=== PATIENT | male | born 1965 | race Caucasian/White ===

== ENCOUNTER → 2022-07-15 13:38 | Outpatient (BNVA) | payer MEDICAID, SELFPAY | PROVIDERS: PCP Nurse Practitioner Family; Visit Provider Nurse Practitioner Family | DX: J98.4 Other disorders of lung (principal); I10 Essential (primary) hypertension; K21.9 Gastro-esophageal reflux disease without esophagitis; J30.9 Allergic rhinitis, unspecified; L20.9 Atopic dermatitis, unspecified; Z12.5 Encounter for screening for malignant neoplasm of prostate; J40 Bronchitis, not specified as acute or chronic; K44.9 Diaphragmatic hernia without obstruction or gangrene; R10.9 Unspecified abdominal pain; K43.9 Ventral hernia without obstruction or gangrene; Z12.11 Encounter for screening for malignant neoplasm of colon; R11.0 Nausea; K59.00 Constipation, unspecified; M19.90 Unspecified osteoarthritis, unspecified site; M54.2 Cervicalgia; M25.511 Pain in right shoulder; M25.512 Pain in left shoulder; R79.89 Other specified abnormal findings of blood chemistry; R53.83 Other fatigue; R53.1 Weakness; Z86.19 Personal history of other infectious and parasitic diseases | CPT/HCPCS: 80053; 80061; 82607; 82746; 84402; 84403; 86705; 86706; 86709; 86803; 87340; G0103 ==

== ENCOUNTER → 2022-07-16 02:30 | Outpatient (BNVA) | payer MEDICAID, SELFPAY | PROVIDERS: PCP Nurse Practitioner Family; Visit Provider Nurse Practitioner Family | DX: J98.4 Other disorders of lung (principal); I10 Essential (primary) hypertension; K21.9 Gastro-esophageal reflux disease without esophagitis; J30.9 Allergic rhinitis, unspecified; L20.9 Atopic dermatitis, unspecified; Z12.5 Encounter for screening for malignant neoplasm of prostate; J40 Bronchitis, not specified as acute or chronic; K44.9 Diaphragmatic hernia without obstruction or gangrene; R10.9 Unspecified abdominal pain; K43.9 Ventral hernia without obstruction or gangrene; Z12.11 Encounter for screening for malignant neoplasm of colon; R11.0 Nausea; K59.00 Constipation, unspecified; M19.90 Unspecified osteoarthritis, unspecified site; M54.2 Cervicalgia; M25.511 Pain in right shoulder; M25.512 Pain in left shoulder; R53.83 Other fatigue; R53.1 Weakness; Z86.19 Personal history of other infectious and parasitic diseases | CPT/HCPCS: 87522 ==

== ENCOUNTER → 2022-08-13 07:58 | Outpatient (BNVA) | payer MEDICAID, SELFPAY | PROVIDERS: PCP Nurse Practitioner Family; Visit Provider Surgery | DX: K21.9 Gastro-esophageal reflux disease without esophagitis (principal); Z12.11 Encounter for screening for malignant neoplasm of colon; M62.08 Separation of muscle (nontraumatic), other site | CPT/HCPCS: 99203 ==

== ENCOUNTER 2022-08-14 10:02 | Day surgery (SDC) | payer MEDICAID, SELFPAY ==
[2022-08-13 09:45] VITALS: BMI 28.1
[2022-08-14 10:49] VITALS: BP 148/7; PULSE 62; RESP 17; TEMP 36.7; O2SAT 98
[2022-08-14] MEDS: sodium chloride 0.9% 1,000 ML 30 ML IV (11:09)
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
--- NOTE | 2022-08-14 13:36 | W.PM.OPSUD ---
Surgery/Procedure H&P Update DATE OF PROCEDURE: August 14, 2022 DATE H&P PERFORMED: 08/13/22 PLANNED PROCEDURE: Operation Date: 08/14/22 11:30 Proposed Procedures p 11933 EGD 06988 Colonoscopy M62.08,Z12.11,K21.9(Not Applicable) - DO cherri Alberts Colonoscopy(Not Applicable) - David Villa DO
[2022-08-14 14:18] VITALS: BP 135/72; PULSE 78; RESP 14; TEMP 36.1; O2SAT 95
[2022-08-14 14:26] VITALS: BP 129/77; PULSE 72; RESP 16; O2SAT 92
--- NOTE | 2022-08-14 14:58 | ANE.PACU2 ---
Inpatient post-anesthesia follow up: Airway intact: Yes Vital signs: Temperature 97.0 F Pulse Rate 72 Respiratory Rate 16 Blood Pressure 129/77 Pulse Oximetry 92 Oxygen Delivery Me thod Room Air Oxygen Flow Rate Fraction of Inspir ed Oxygen Hydration adequate: Yes Nausea and vomiting: No Pain level: 1 Mental status: Baseline
== END 2022-08-14 14:50 | disposition home or self-care (01) ==
PROVIDERS: PCP Nurse Practitioner Family; Visit Provider Surgery
PROC: 0DJ08ZZ Inspection of Upper Intestinal Tract, Via Natural or Artificial Opening Endoscopic (ICD-10-PCS; CPT 43235; principal; 2022-08-14 11:30)
PROC: 0DJD8ZZ Inspection of Lower Intestinal Tract, Via Natural or Artificial Opening Endoscopic (ICD-10-PCS; CPT 45378; 2022-08-14 11:30)
DX: Z12.11 Encounter for screening for malignant neoplasm of colon (principal); K21.9 Gastro-esophageal reflux disease without esophagitis; M62.08 Separation of muscle (nontraumatic), other site; K64.8 Other hemorrhoids; D12.8 Benign neoplasm of rectum; K29.70 Gastritis, unspecified, without bleeding; J44.9 Chronic obstructive pulmonary disease, unspecified; G47.30 Sleep apnea, unspecified; I25.10 Atherosclerotic heart disease of native coronary artery without angina pectoris; I10 Essential (primary) hypertension; Z86.19 Personal history of other infectious and parasitic diseases; Z87.891 Personal history of nicotine dependence
CPT/HCPCS: 43239; 45385; 88305; J2704; J7030

== ENCOUNTER 2022-09-17 07:47 | Outpatient (CLI) | payer MEDICAID, SELFPAY ==
--- NOTE | 2022-09-17 08:00 | US_ITS ---
WS: [email or web address] Gallbladder and right upper quadrant ultrasound, 09/17/2022 Clinical Data: nausea/vomit Comparison: None. Findings: The gallbladder shows no sludge or stone. The wall measures 0.2 cm with no pericholecystic fluid. The common bile duct is 0.4 cm and there are no intrahepatic ductal abnormalities. Liver shows no cysts, masses or dilated intrahepatic ducts. The pancreas is not obscured by overlying bowel gas and no cyst, pseudocyst, or evidence of pancreati tis is noted. Right kidney measures 11.0 cm and no cyst, masses or hydronephrosis can be seen. The aorta and inferior vena cava show no vascular abnormalities. US/US gall bladder [id number] Impression: Negative gallbladder and right upper quadrant ultrasound.
== END 2022-09-17 07:48 | disposition home or self-care (01) ==
LOC: RAD 07:48
PROVIDERS: PCP Nurse Practitioner Family; Visit Provider Surgery
DX: R11.2 Nausea with vomiting, unspecified (principal)
CPT/HCPCS: 76705

== ENCOUNTER 2022-10-04 09:28 | Outpatient (CLI) | payer MEDICAID, SELFPAY ==
--- NOTE | 2022-10-04 09:41 | XR_ITS ---
WS: [email or web address] XR lumbar spine 2-3V* [id number] REASON FOR EXAM: back pain FINDINGS: Minimal rotatory scoliosis convex left. Mild straightening of the normal lordosis on the lateral. No significant focal vertebral body abnormality. Mild narrowing of the L4-L5 and L5-S1 disc spaces with adjacent endplate sclerosis and osteophytosis. No spondylolysis. No significant listhesis. Moderate degenerative change in the facet joints L4-S1. XR/XR lumbar spine 2-3V* [id number] IMPRESSION: Degenerative spondylosis at the L4-L5 and L5-S1 levels as above.
--- NOTE | 2022-10-04 09:41 | XR_ITS ---
WS: [email or web address] XR cervical spine 3V* [id number] REASON FOR EXAM: neck pain FINDINGS: Mild straightening of the normal lordosis of the cervical spine. Mild scoliosis convex left. Normal odontoid. No significant vertebral body abnormality. Mild narrowing of the C3-C4 disc space with moderate anterior and uncinate osteophytes. The C4-C5 disc space is well preserved with moderate anterior and uncinate osteophytes. Mild narrowing of the C5-C6 disc space with moderate anterior bridging osteophyte and uncinate osteop hytes. Moderate narrowing of the C6-C7 disc space with small anterior bridging osteophyte and moderate uncin ate osteophytes. Moderate degenerative change in the facet joints C3-T1. 1 to 2 mm of anterolisthesis of C4 on C5. XR/XR cervical spine 3V* [id number] IMPRESSION: Multilevel degenerative spondylosis as above.
== END 2022-10-04 09:29 | disposition home or self-care (01) ==
PROVIDERS: PCP Nurse Practitioner Family; Visit Provider Nurse Practitioner Family
DX: M47.892 Other spondylosis, cervical region (principal); M47.896 Other spondylosis, lumbar region; M47.897 Other spondylosis, lumbosacral region
CPT/HCPCS: 72040; 72100

== ENCOUNTER 2022-10-23 18:32 | Emergency (ER) | payer MEDICAID, SELFPAY ==
[2022-10-23 18:35] VITALS: BP 166/70; PULSE 60; RESP 20; TEMP 36.4; O2SAT 98; BMI 28.3
[2022-10-23 19:17] LABS: Basophils # 0.1 10^3/uL (0.0-0.1); Eosinophils # 0.4 10^3/uL (0.0-0.8); Eosinophils % 3.2 %; Hematocrit 41.8 % (42.0-52.0); Hemoglobin 14.1 g/dL (11.7-16.6); Lymphocytes # 2.3 10^3/uL (0.8-4.8); Lymphocytes % 20.9 %; Mean Corpuscular HGB Conc 33.7 g/dL (30.0-36.0); Mean Corpuscular Hemoglobin 30.9 pg (28.0-34.0); Mean Corpuscular Volume 91.5 fl (80-94); Mean Platelet Volume 11.7 fL (7.4-10.4); Monocytes # 0.5 10^3/uL (0.2-0.9); Neutrophils # 7.55 10^3/uL (1.8-7.7); Neutrophils % 69.6 %; Nucleated Red Blood Cells % 0 %; Platelet Count 202 10^3/cmm (130-400); Red Blood Count 4.57 10^6/uL (4.1-5.3); Red Cell Distribution Width 12.8 % (12.1-15.1); White Blood Count 10.9 10^3/uL (4.0-10.0)
[2022-10-23 19:34] LABS: Alanine Aminotransferase 18 U/L (0-41); Albumin Level 4.3 g/dL (3.5-5.2); Alkaline Phosphatase 105 U/L (40-130); Anion Gap 12.1 (5-19); Aspartate Amino Transferase 23 U/L (0-40); Blood Urea Nitrogen 10 mg/dL (6-20); Calcium 8.7 mg/dL (8.5-10.5); Carbon Dioxide 28 mmol/L (22-29); Chloride 104 mmol/L (98-107); Globulin 2.3 g/dL (1.3-4.6); Glomerular Filtration Rate 98.9 mL/min (90-130); Glucose 108 mg/dL (65-115); Lipase 25 U/L (13-60); Osmolality Calculated 290 mOsm/kg (285-295); Potassium 4.1 mmol/L (3.5-5.1); Sodium 140 mmol/L (136-145); Total Bilirubin 0.3 mg/dL (0.15-1.2); Total Protein 6.6 g/dL (6.6-8.7)
[2022-10-23 19:41] LABS: Add Urine Microscopic? NO; Charge for UA Resulting for Rev
[2022-10-23 19:42] LABS: Urine Appearance Clear (CLEAR); Urine Color Yellow (Yellow); pH Urine 5 (5-7)
[2022-10-23 19:43] LABS: Bilirubin Urine Neg (Negative); Blood Urine Neg (Negative); Glucose Urine UA Norm (Normal); Ketones Urine Negative (Negative); Leukocyte Esterase Urine Negative (Negative); Nitrate Urine Negative (Negative); Protein Urine Neg (Negative); Urobilinogen Urine Neg (Negative)
--- NOTE | 2022-10-23 21:32 | ED_ITS ---
HPI - Abdominal Pain General: Chief Complaint: Abdominal Pain Stated Complaint: groin pain Time Seen by Provider: 10/23/22 21:32 History of Present Illness: 57-year-old male patient comes in today with right lower quadrant abdominal pain. Patient reports that if he coughs or take a deep breath the pain is worse. Patient does continue to have his gallbladder and appendix. Patient appears nontoxic. Patient appears in mild to moderate pain. Associated Symptoms: Reports nausea Review of Systems GI: Reports: abdominal pain and nausea PFSH ED PFSH: Medical History Hx of hiatal hernia Rectus diastasis Surgical History History of esophagogastroduodenoscopy (EGD) showed hiatal hernia 4-5 yrs ago Social History Smoking and tobacco status: former smoker Alcohol intake: former Physical Exam Const: COMMON NORMALS: alert HENMT: COMMON NORMALS: normocephalic HEAD & SCALP: normocephalic Eye: COMMON NORMALS: EOMs intact bilaterally Neck/C-Spine: COMMON NORMALS: full ROM Resp: COMMON NORMALS: normal respiratory effort AUSCULTATION: wheezes Cardio: COMMON NORMALS: regular rate and regular rhythm RATE: regular rate RHYTHM: regular rhythm GI: AUSCULTATION: Yes normoactive bowel sounds PALPATION: Yes Tenderness to palpation present (GI) Details: RLQ Extremity: COMMON NORMALS: normal to inspection Neuro: SENSORIUM/ORIENTATION: Yes alert Skin: COMMON NORMALS: turgor normal GENERAL SKIN EXAM: turgor normal Course Vital Signs: Vital signs: Vital Signs Temperature 97.6 F 10/23/22 18:35 Pulse Rate 66 10/23/22 22:09 Respiratory Rate 16 10/23/22 22:09 Blood Pressure 134/66 10/23/22 22:09 Pulse Oximetry 93 10/23/22 22:09 Oxygen Delivery Me thod 10/23/22 22:09 MDM - Abdominal Pain Medical Decision Making 57-year-old male patient comes in today for concerns of right lower quadrant abdominal pain. Patient is concerned they may be developing appendicitis. Patient does have recurrent abdominal pain has been seen several times in the ER and at the surgeon's office today regarding his abdominal pain. Patient reports that this pain is different, reports no fever, states chills, and complaints of nausea. Abdomen soft rotund and slightly distended. Bowel sounds are present. Skin is warm and dry. Vital signs are normal. Differential diagnosis includes but not limited to constipation, appendicitis, renal colic, muscle strain, malingering. CBC and CMP was unremarkable. Urinalysis was clean. CT of the abdomen pelvis noted some fluid levels in the bowel and stomach suggestive of gastroenteritis. Reviewed exam with patient with recommendations for follow-up or return to the ER. Patient reported understanding agreed to plan. Lab Data 10/23/22 18:46 10/23/22 18:46 Labs/Radiology: Radiology Impressions Abdomen/Pelvis CT 10/23/22 21:38 IMPRESSION: 1. Prominent fluid in the stomach and small bowel may reflect a gastroenteritis. 2. Small bilateral fat containing inguinal hernias without bowel or inflammation. 3. Left hip surgical hardware in place. 4. Minimal diverticulosis without diverticulitis. 5. Hepatic steatosis. 6. Constipation. 7. Nonspecific prominent subcentimeter inguinal lymph nodes bilaterally, nonspecific. 8. Left hepatic lobe subcentimeter cyst. Laboratory Results WBC 10.9 10^3/uL (4.0-10.0) H 10/23/22 18:46 RBC 4.57 10^6/uL (4.1-5.3) 10/23/22 18:46 Hgb 14.1 g/dL (11.7-16.6) 10/23/22 18:46 Hct 41.8 % (42.0-52.0) L 10/23/22 18:46 MCV 91.5 fl (80-94) 10/23/22 18:46 MCH 30.9 pg (28.0-34.0) 10/23/22 18:46 MCHC 33.7 g/dL (30.0-36.0) 10/23/22 18:46 RDW 12.8 % (12.1-15.1) 10/23/22 18:46 Plt Count 202 10^3/cmm (130-400) 10/23/22 18:46 MPV 11.7 fL (7.4-10.4) H 10/23/22 18:46 Neut % (Auto) 69.6 % 10/23/22 18:46 Lymph % (Auto) 20.9 % 10/23/22 18:46 [place] % (Auto) 5.0 % 10/23/22 18:46 Eos % (Auto) 3.2 % 10/23/22 18:46 Baso % (Auto) 1.0 % 10/23/22 18:46 Neut # (Auto) 7.55 10^3/uL (1.8-7.7) 10/23/22 18:46 Lymph # (Auto) 2.3 10^3/uL (0.8-4.8) 10/23/22 18:46 [place] # (Auto) 0.5 10^3/uL (0.2-0.9) 10/23/22 18:46 Eos # (Auto) 0.4 10^3/uL (0.0-0.8) 10/23/22 18:46 Baso # (Auto) 0.1 10^3/uL (0.0-0.1) 10/23/22 18:46 Nucleated RBC % (auto) 0 % 10/23/22 18:46 Nucleated RBCs # 0.0 /100WBC 10/23/22 18:46 Sodium 140 mmol/L (136-145) 10/23/22 18:46 Potassium 4.1 mmol/L (3.5-5.1) 10/23/22 18:46 Chloride 104 mmol/L (98-107) 10/23/22 18:46 Carbon Dioxide 28 mmol/L (22-29) 10/23/22 18:46 Anion Gap 12.1 (5-19) 10/23/22 18:46 BUN 10 mg/dL (6-20) 10/23/22 18:46 Creatinine 0.8 mg/dL (0.7-1.2) 10/23/22 18:46 GFR Calculation 98.9 mL/min (90-130) 10/23/22 18:46 Glucose 108 mg/dL (65-115) 10/23/22 18:46 Calculated Osmolality 290 mOsm/kg (285-295) 10/23/22 18:46 Calcium 8.7 mg/dL (8.5-10.5) 10/23/22 18:46 Total Bilirubin 0.3 mg/dL (0.15-1.2) 10/23/22 18:46 AST 23 U/L (0-40) 10/23/22 18:46 ALT 18 U/L (0-41) 10/23/22 18:46 Alkaline Phosphatase 105 U/L (40-130) 10/23/22 18:46 Total Protein 6.6 g/dL (6.6-8.7) 10/23/22 18:46 Albumin 4.3 g/dL (3.5-5.2) 10/23/22 18:46 Globulin 2.3 g/dL (1.3-4.6) 10/23/22 18:46 Lipase 25 U/L (13-60) 10/23/22 18:46 Urine Color Yellow (Yellow) 10/23/22 17:36 Urine Appearance Clear (CLEAR) 10/23/22 17:36 Urine pH 5 (5-7) 10/23/22 17:36 Ur Specific [place] 1.020 (1.005-1.030) 10/23/22 17:36 Urine Protein Neg (Negative) 10/23/22 17:36 Urine Glucose (UA) Norm (Normal) 10/23/22 17:36 Urine Ketones Negative (Negative) 10/23/22 17:36 Urine Blood Neg (Negative) 10/23/22 17:36 Urine Nitrate Negative (Negative) 10/23/22 17:36 Urine Bilirubin Neg (Negative) 10/23/22 17:36 Urine Urobilinogen Neg mg/dL (Negative) 10/23/22 17:36 Ur Leukocyte Esterase Negative (Negative) 10/23/22 17:36 Discharge Plan Discharge Patient Disposition: Home Clinical Impression: Gastroenteritis Abdominal pain Qualifiers: Abdominal location: right lower quadrant Qualified Code(s): R10.31 - Right lower quadrant pain Condition: Stable Prescriptions: New ondansetron 4 mg tablet,disintegrating 4 mg PO Q8H PRN (Reason: nausea and vomiting) Qty: 10 0RF hydrocodone-acetaminophen 5-325 mg tablet 1 tab PO Q8H PRN (Reason: pain (scale score 7-10)) Qty: 6 0RF No Action albuterol sulfate [Ventolin HFA] 90 mcg/actuation HFA aerosol inhaler 2 puff inhalation 6XD PRN (Reason: shortness of breath or wheezing) Qty: 8.5 3RF albuterol sulfate 2.5 mg /3 mL (0.083 %) solution for nebulization 2.5 mg inhalation Q4H PRN (Reason: shortness of breath or wheezing) Qty: 180 6RF triamcinolone acetonide 55 mcg aerosol,spray 2 spray intranasal DAILY Qty: 16.9 6RF Rx Instructions: administer into each nostril Minerin Creme Cream 1 applic topical DAILY PRN (Reason: dry skin) 30 Days Qty: 113 3RF alum-mag hydroxide-simeth [Maalox Maximum Strength] 400-400-40 mg/5 mL suspension 10 ml PO TID PRN (Reason: indigestion) Qty: 355 3RF budesonide-formoterol [Symbicort] 160-4.5 mcg/actuation HFA aerosol inhaler 2 puff inhalation Q12H Qty: 10.2 6RF baclofen 10 mg tablet 10 mg PO TID PRN (Reason: muscle spasm) 30 Days Qty: 90 3RF celecoxib 100 mg capsule 100 mg PO BID 30 Days Qty: 60 2RF cetirizine [Zyrtec] 10 mg tablet 10 mg PO DAILY 90 Days Qty: 90 1RF ondansetron HCl 4 mg tablet 4 mg PO Q6H PRN (Reason: nausea and vomiting) Qty: 90 1RF pantoprazole [Protonix] 40 mg tablet,delayed release (DR/EC) 40 mg PO BID 30 Days Qty: 60 3RF promethazine-DM 6.25-15 mg/5 mL syrup 5 - 10 ml PO Q6H PRN (Reason: cough) Qty: 200 1RF losartan 25 mg tablet 25 mg PO DAILY 30 Days Qty: 30 2RF Men's 50 Plus Multivitamin 400-20-370 mcg Tablet 1 tab PO DAILY Anusol-HC 2.5 % cream with perineal applicator 1 applic HI QID 10 Days Qty: 30 1RF Rx Instructions: May repeat for another 10 days if no resolution Discharge Orders: Discharge ED (Routine); Ordered 10/23/22 Ordered By: Matthew Monet Referrals: Mayi Multani NP [Primary Care Provider] - Discharge Diet: Usual diet Discharge Activity: Increase activity as tolerated Patient Instructions: Abdominal Pain (ED) Activity Restrictions/Additional Instructions: Drink plenty of fluids. Activity as tolerated. Follow-up with primary care in 1 week for recheck. Return to emergency department for worsening symptoms such as high fever greater than 100.4, persistent vomiting, bloody vomit or stool, or new concerns. Coding Level of Care Code ED Promotional Demonstrator for Luc Medrano
--- NOTE | 2022-10-23 21:38 | CTR_ITS ---
PROCEDURE INFORMATION: Exam: CT Abdomen And Pelvis With Contrast Exam date and time: 10/23/2022 9:58 PM Age: 57 years old Clinical indication: Abdominal pain; Localized; Right lower quadrant (rlq); Prior surgery; Surgery type: Left femur; Patient HX: C/O rlq pain TECHNIQUE: Imaging protocol: Computed tomography of the abdomen and pelvis with contrast. Radiation optimization: All CT scans at this facility use at least one of these dose optimization techniques: automated exposure control; mA and/or kV adjustment per patient size (includes targeted exams where dose is matched to clinical indication); or iterative reconstruction. Contrast material: OMNI 350; Contrast volume: 100 ml; Contrast route: INTRAVENOUS (IV); Other protocol: This patient has received 0 known CTs and 0 known cardiac nuclear medicine studies in the 12 months prior to the current study. COMPARISON: US gall bladder [id number] 09/17/2022 7:59 AM RADIATION DOSE METRICS: Total DLP (mGy-cm): 651.63 FINDINGS: Liver: Hepatic steatosis. Left hepatic lobe subcentimeter cyst. Gallbladder and bile ducts: Normal. No calcified stones. No ductal dilation. Pancreas: Normal. No ductal dilation. Spleen: Normal. No splenomegaly. Adrenal glands: Normal. No mass. Kidneys and ureters: Normal. No hydronephrosis. Stomach and bowel: Prominent fluid in the stomach and small bowel may reflect a gastroenteritis. Minimal diverticulosis without diverticulitis. Constipation. Appendix: No evidence of appendicitis. Intraperitoneal space: Unremarkable. No free air. No significant fluid collection. Vasculature: Unremarkable. No abdominal aortic aneurysm. Lymph nodes: Nonspecific prominent subcentimeter inguinal lymph nodes bilaterally, nonspecific. Urinary bladder: Unremarkable as visualized. Reproductive: Unremarkable as visualized. Bones/joints: Left hip surgical hardware in place. Soft tissues: Small bilateral fat containing inguinal hernias without bowel or inflammation. CT/CT abdomen pelvis w con* [id number] IMPRESSION: 1. Prominent fluid in the stomach and small bowel may reflect a gastroenteritis. 2. Small bilateral fat containing inguinal hernias without bowel or inflammation. 3. Left hip surgical hardware in place. 4. Minimal diverticulosis without diverticulitis. 5. Hepatic steatosis. 6. Constipation. 7. Nonspecific prominent subcentimeter inguinal lymph nodes bilaterally, nonspecific. 8. Left hepatic lobe subcentimeter cyst.
[2022-10-23] MEDS: ondansetron 2 mg/ML SDV 2 mL 4 MG IVP (21:47)
[2022-10-23] MEDS: morphine 4 mg/mL SDV 1 mL IVP (21:48)
[2022-10-23 22:09] VITALS: BP 134/66; PULSE 66; RESP 16; O2SAT 93
[2022-10-23] MEDS: iohexol 350 mg/mL 500 mL Btl (per mL) IV (22:09)
[2022-10-23] MEDS: sodium chloride 0.9% 250 ML IV (22:16)
[2022-10-23 22:57] VITALS: BP 135/71; PULSE 69; RESP 16; O2SAT 96
== END 2022-10-23 22:59 | disposition home or self-care (01) ==
PROVIDERS: Emergency Medicine; Emergency Provider Nurse Practitioner Family; PCP Nurse Practitioner Family
DX: K52.9 Noninfective gastroenteritis and colitis, unspecified (principal); Z87.891 Personal history of nicotine dependence
CPT/HCPCS: 36415; 74177; 80053; 81003; 83690; 85025; 96361; 96374; 96375; 99285; J2270; J2405; J7050; Q9967

== ENCOUNTER 2022-11-06 10:14 | Outpatient (CLI) | payer MEDICAID, SELFPAY ==
--- NOTE | 2022-11-06 10:00 | NM_ITS ---
WS: [email or web address] NUCLEAR MEDICINE HIDA SCAN CLINICAL INFORMATION: nausea TECHNIQUE: Following intravenous administration of 7.6 mCi of technetium 99m mebrofenin, images of th e abdomen were obtained over the course of 60 minutes. Next, gallbladder ejection fraction was determ ined by obtaining preprandial and one-hour postprandial images of the gallbladder following oral queta stion of Ensure. COMPARISON CT October 23, 2022 and ultrasound September 17, 2022 FINDINGS: Hepatomegaly. Normal hepatic uptake. Normal hepatic excretion. Gallbladder is visualized by 15 minute s. No evidence of acute cholecystitis. Normal common bile duct and small bowel activity. Gallbladder ejection fraction 83% within normal limits. No evidence of chronic cholecystitis. NM/NM hepatobiliary w phar* [id number] IMPRESSION: 1. No evidence of acute or chronic cholecystitis. 2. Gallbladder ejection fraction 83% within normal limits
== END 2022-11-06 10:15 | disposition home or self-care (01) ==
LOC: RAD 10:15
PROVIDERS: PCP Nurse Practitioner Family; Visit Provider Surgery
DX: K21.9 Gastro-esophageal reflux disease without esophagitis (principal); R11.0 Nausea
CPT/HCPCS: 78227; A9537

== ENCOUNTER → 2023-02-24 11:45 | Outpatient (BNVA) | payer MEDICAID, SELFPAY | PROVIDERS: PCP Nurse Practitioner Family; Visit Provider Nurse Practitioner Family | DX: I10 Essential (primary) hypertension (principal); F41.8 Other specified anxiety disorders; F43.29 Adjustment disorder with other symptoms; M54.2 Cervicalgia; M25.511 Pain in right shoulder; M25.512 Pain in left shoulder; M19.90 Unspecified osteoarthritis, unspecified site; J30.9 Allergic rhinitis, unspecified; K59.00 Constipation, unspecified; K21.9 Gastro-esophageal reflux disease without esophagitis; M54.50 Low back pain, unspecified | CPT/HCPCS: 80053; 80061; 84443; 85007; 85027 ==

== ENCOUNTER 2023-03-21 08:21 | Emergency (ER) | payer MEDICAID, SELFPAY ==
[2023-03-21 08:26] VITALS: BP 148/110; PULSE 60; RESP 17; TEMP 36.7; O2SAT 98; BMI 25.5
--- NOTE | 2023-03-21 08:30 | XR_ITS ---
WS: [email or web address] Right knee, 3 views, 03/21/2023 Clinical Data: trauma Comparison: None. Findings: No fractures or dislocations are seen. The joint spaces are normal. The patella is intact. The soft t issues are unremarkable. XR/XR knee RT 3V* [id number] Impression: Negative right knee.
--- NOTE | 2023-03-21 08:30 | XR_ITS ---
WS: [email or web address] Right shoulder, 2 views, 03/21/2023 Clinical Data: trauma Comparison: None. Findings: No fractures or dislocations are seen. The AC joint shows minimal osteoarthritis. The adjacent right clavicle, right scapula and ribs are normal. The soft tissues are unremarkable. There are monitor leads on the chest wall. XR/XR shoulder RT min 2V* [id number] Impression: 1. Negative right shoulder. 2. 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
--- NOTE | 2023-03-21 08:30 | XR_ITS ---
WS: [email or web address] Right forearm, AP and lateral views, 03/21/2023 Clinical Data: trauma Comparison: None. Findings: No fractures or dislocations are seen. The soft tissues are normal. The visualized right wrist and el bow show no obvious abnormalities. XR/XR forearm RT 2V [id number] Impression: Negative for right forearm fracture.
--- NOTE | 2023-03-21 08:30 | XR_ITS ---
WS: [email or web address] Portable AP upright chest, 03/21/2023 Clinical Data: dyspnea/cough Comparison: None. Findings: No nodules, masses or effusions are seen. The heart is normal. The pulmonary vascularity is not increased. No pneumonia or pneumothorax is seen. Monitor leads are on the chest wall. XR/XR chest 1V portable [id number] Impression: Negative chest.
--- NOTE | 2023-03-21 08:31 | CT_ITS ---
WS: [email or web address] CT cervical spine. Additional two-dimensional coronal and sagittal reconstruction was performed. 2022 Clinical Data: trauma Comparison: None. DLP: 1290.[address] scans at [facility] use at least one of these dose optimization techniques: automated e xposure control; mA and/or kV adjustment per patient size (includes targeted exams where dose is matc hed to clinical indication); or iterative reconstruction. Findings: No compression fractures are seen. The disc heights are normal. There is disc narrowing at C5-C6 and C6-C7. There is anterior and posterior osteophyte formation from C3 through C7. The spinous processes are in good alignment. The odontoid is unremarkable. There is no prevertebral soft tissue swelling. The soft tissues of the cervical spine and the lung apices are not remarkable. CT/CT cervical spin wo con* [id number] Impression: 1. Negative for cervical spine fracture. 2. Degenerative disc narrowing at C5-C6 and C6-C7. 3. Osteophytes anteriorly and posteriorly C3-C7.
--- NOTE | 2023-03-21 08:37 | XR_ITS ---
WS: [email or web address] Right elbow, 3 views, 03/21/2023 Clinical Data: trauma Comparison: None. Findings: No fractures or dislocations are seen. The radial head is normal. The soft tissues are unremarkable. There is a small olecranon spur. XR/XR elbow RT min 3V* [id number] Impression: Negative right elbow.
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
--- NOTE | 2023-03-21 08:42 | CT_ITS ---
WS: [id number] CT scan of the head, 03/21/2023 Clinical Data: trauma Comparison: None. DLP: 1290.[address] scans at [facility] use at least one of these dose optimization techniques: automated e xposure control; mA and/or kV adjustment per patient size (includes targeted exams where dose is matc hed to clinical indication); or iterative reconstruction. Findings: The ventricular system is normal without shift. No recent infarct or hemorrhage is seen. There are no abnormal intracerebral masses. The cerebellum and brainstem are not remarkable. Bony windows of the skull and skull base show no fractures or erosions. There is a small right pariet al scalp hematoma. The mastoid air cells, internal auditory canals, sella turcica, intraorbital sean nts, and paranasal sinuses are unremarkable. CT/CT head wo con* [id number] Impression: Negative CT scan of the head
--- NOTE | 2023-03-21 08:43 | XR_ITS ---
WS: [id number] Pelvis, AP view, 03/21/2023 Clinical Data: trauma Comparison: None. Findings: No new fractures or dislocations are seen. There is an intramedullary leticia in the proximal left femur fixed with an oblique intertrochanteric screw. There is osteoarthritic change of both hips with promi nent acetabular lips. The SI joints and pubic symphysis are intact. The soft tissues are not remarkab le. XR/XR pelvis 1-2V* [id number] Impression: Negative for new fracture.
[2023-03-21 09:05] LABS: Basophils # 0.1 10^3/uL (0.0-0.1); Basophils % 1.4 %; Eosinophils # 0.2 10^3/uL (0.0-0.8); Eosinophils % 2.8 %; Hemoglobin 14.4 g/dL (11.7-16.6); Lymphocytes # 1.9 10^3/uL (0.8-4.8); Lymphocytes % 22.4 %; Mean Corpuscular HGB Conc 34.3 g/dL (30.0-36.0); Mean Corpuscular Hemoglobin 30.6 pg (28.0-34.0); Mean Corpuscular Volume 89.2 fl (80-94); Mean Platelet Volume 10.9 fL (7.4-10.4); Monocytes # 0.5 10^3/uL (0.2-0.9); Monocytes % 6.1 %; Neutrophils # 5.75 10^3/uL (1.8-7.7); Neutrophils % 66.5 %; Nucleated Red Blood Cells % 0 %; Platelet Count 225 10^3/cmm (130-400); Red Blood Count 4.71 10^6/uL (4.1-5.3); Red Cell Distribution Width 13.3 % (12.1-15.1); White Blood Count 8.7 10^3/uL (4.0-10.0)
[2023-03-21 09:25] LABS: Alanine Aminotransferase 12 U/L (0-41); Albumin Level 3.8 g/dL (3.5-5.2); Alkaline Phosphatase 97 U/L (40-130); Anion Gap 13.7 (5-19); Aspartate Amino Transferase 19 U/L (0-40); Blood Urea Nitrogen 13 mg/dL (6-20); Calcium 8.4 mg/dL (8.5-10.5); Carbon Dioxide 24 mmol/L (22-29); Chloride 106 mmol/L (98-107); Globulin 2.4 g/dL (1.3-4.6); Glomerular Filtration Rate 137.9 mL/min (90-130); Glucose 118 mg/dL (65-115); Osmolality Calculated 289 mOsm/kg (285-295); Potassium 4.7 mmol/L (3.5-5.1); Sodium 139 mmol/L (136-145); Total Bilirubin 0.4 mg/dL (0.15-1.2); Total Protein 6.2 g/dL (6.6-8.7)
[2023-03-21] MEDS: tetanus-dipt-pertussis 0.5 mL SDV IM (09:31)
[2023-03-21] MEDS: ondansetron 2 mg/ML SDV 2 mL 4 MG IVP (09:33)
[2023-03-21 09:36] VITALS: RESP 20
[2023-03-21] MEDS: morphine 4 mg/mL SDV 1 mL IVP ×2 (09:36→11:11)
[2023-03-21 09:50] VITALS: BP 148/110
[2023-03-21 10:03] LABS: Add Urine Microscopic? NO; Charge for UA Resulting for Rev
[2023-03-21 10:10] LABS: Bilirubin Urine Neg (Negative); Blood Urine Neg (Negative); Glucose Urine UA Norm (Normal); Ketones Urine Negative (Negative); Leukocyte Esterase Urine Negative (Negative); Nitrate Urine Negative (Negative); Protein Urine Neg (Negative); Specific Gravity, Urine 1.015 (1.005-1.030); Urine Appearance Clear (CLEAR); Urine Color Yellow (Yellow); Urobilinogen Urine Norm (Negative); pH Urine 7 (5-7)
== END 2023-03-21 12:01 | disposition home or self-care (01) ==
PROVIDERS: Emergency Provider Family Medicine; PCP Nurse Practitioner Family
DX: S50.811A Abrasion of right forearm, initial encounter (principal); M25.511 Pain in right shoulder; V84.5XXA Driver of special agricultural vehicle injured in nontraffic accident, initial encounter; Z87.891 Personal history of nicotine dependence; Z23 Encounter for immunization
CPT/HCPCS: 70450; 71045; 72125; 72170; 73030; 73080; 73090; 73562; 80053; 81003; 85025; 90471; 90715; 96374; 96375; 96376; 99285; J2270; J2405

== ENCOUNTER 2023-05-15 06:40 | Outpatient (CLI) | payer MEDICAID, SELFPAY ==
--- NOTE | 2023-05-15 07:00 | USCV_ITS ---
Pilo Gonzalez Age: 57 Gender: M : 1965 Exam Date: 05/15/2023 07:12 Ordering Phys: Mayi Multani NP Technologist: AGNES Exam Location: [facility] [place] Indication: RLE PAIN HISTORY: Lower extremity pain. PROCEDURES: Venous duplex imaging was performed in only the right lower extremity. The following venous structures were evaluated: common femoral vein, profunda vein, proximal portion of the greater saphenous vein, superficial femoral vein, and the popliteal vein. In addition, the posterior tibial and peroneal trunk were evaluated. Serial compression, augmentation maneuvers, and spectral Doppler flow evaluation were performed. FINDINGS: No evidence of DVT seen in any vessel visualized at this time. CONCLUSIONS No DVT right lower extremity. Dr. Yuly Cartwright DO (Electronically Signed) Final Date: 15 May 2023 07:54 S
== END 2023-05-15 06:41 | disposition home or self-care (01) ==
LOC: RAD 06:42
PROVIDERS: PCP Nurse Practitioner Family; Visit Provider Nurse Practitioner Family
DX: M79.604 Pain in right leg (principal)
CPT/HCPCS: 93971

== ENCOUNTER → 2023-07-02 13:02 | Outpatient (BNVA) | payer MEDICAID, SELFPAY | PROVIDERS: PCP Nurse Practitioner Family; Visit Provider Nurse Practitioner Family | DX: G89.29 Other chronic pain (principal); M54.41 Lumbago with sciatica, right side; M54.42 Lumbago with sciatica, left side; I10 Essential (primary) hypertension; E78.6 Lipoprotein deficiency; M54.2 Cervicalgia; M25.511 Pain in right shoulder; M25.512 Pain in left shoulder; M19.90 Unspecified osteoarthritis, unspecified site; J30.9 Allergic rhinitis, unspecified; R20.2 Paresthesia of skin; K21.9 Gastro-esophageal reflux disease without esophagitis; F43.29 Adjustment disorder with other symptoms; G62.9 Polyneuropathy, unspecified | CPT/HCPCS: 80053; 80061; 85007 ==

== ENCOUNTER → 2023-10-15 16:56 | Outpatient (BNVA) | payer MEDICAID, SELFPAY | PROVIDERS: PCP Nurse Practitioner Family; Visit Provider Nurse Practitioner Family | DX: M54.2 Cervicalgia (principal); M54.9 Dorsalgia, unspecified; I10 Essential (primary) hypertension; E78.6 Lipoprotein deficiency; Z12.5 Encounter for screening for malignant neoplasm of prostate; M25.511 Pain in right shoulder; M25.512 Pain in left shoulder; M19.90 Unspecified osteoarthritis, unspecified site; K21.9 Gastro-esophageal reflux disease without esophagitis; R11.0 Nausea; K44.9 Diaphragmatic hernia without obstruction or gangrene; R10.31 Right lower quadrant pain; M54.6 Pain in thoracic spine; G89.29 Other chronic pain | CPT/HCPCS: 80053; 80061; G0103 ==

== ENCOUNTER → 2023-10-17 13:06 | Outpatient (BNVA) | payer MEDICAID, SELFPAY | PROVIDERS: PCP Nurse Practitioner Family; Visit Provider Nurse Practitioner Family | DX: M47.892 Other spondylosis, cervical region (principal); M54.6 Pain in thoracic spine; M54.2 Cervicalgia | CPT/HCPCS: 72040; 72072 ==

== ENCOUNTER → 2023-10-30 14:10 | Outpatient (BNVA) | payer MEDICAID, SELFPAY | PROVIDERS: PCP Nurse Practitioner Family; Referring Provider Nurse Practitioner Family; Visit Provider Orthopaedic Surgery | DX: M54.6 Pain in thoracic spine (principal); G89.29 Other chronic pain; M54.2 Cervicalgia | CPT/HCPCS: 72100 ==

== ENCOUNTER 2023-12-24 06:00 | Outpatient (RCR) | payer MEDICAID, SELFPAY | END 2024-01-13 23:59 | disposition home or self-care (01) | LOC: TPT 06:00 | PROVIDERS: Visit Provider Orthopaedic Surgery | DX: M54.9 Dorsalgia, unspecified (principal); G89.29 Other chronic pain | CPT/HCPCS: 97110; 97162 ==

== ENCOUNTER 2024-01-14 06:00 | Outpatient (RCR) | payer MEDICAID, SELFPAY | END 2024-02-13 23:59 | disposition home or self-care (01) | LOC: TPT 06:00 | PROVIDERS: Visit Provider Orthopaedic Surgery | DX: M54.9 Dorsalgia, unspecified (principal); G89.29 Other chronic pain | CPT/HCPCS: 97110 ==

== ENCOUNTER → 2024-01-16 10:43 | Outpatient (BNVA) | payer MEDICAID, SELFPAY | PROVIDERS: PCP Nurse Practitioner Family; Visit Provider Nurse Practitioner Family | DX: R10.9 Unspecified abdominal pain (principal) | CPT/HCPCS: 74018 ==

== ENCOUNTER 2024-09-19 13:01 | Emergency (ER) | payer MEDICAID, SELFPAY ==
[2024-09-19 13:06] VITALS: BP 177/84; PULSE 60; RESP 16; TEMP 36.9; O2SAT 100; BMI 27.1
--- NOTE | 2024-09-19 13:49 | XRR_ITS ---
PROCEDURE INFORMATION: Exam: XR Right Ankle Exam date and time: 09/19/2024 2:20 PM Age: 59 years old Clinical indication: Injury or trauma; Fall; Blunt trauma; Ankle; Right; Additional info: Pain swelling TECHNIQUE: Imaging protocol: Radiologic exam of the right ankle. Views: 3 or more views. COMPARISON: CR (LOW EXM, ) 09/19/2024 2:20 PM FINDINGS: Bones/joints: There is no evidence of acute fracture. No dislocation. Mild degenerative changes. Well corticated ossicular density along medial malleolus. Soft tissues: Normal. XR/XR ankle RT min 3V* [id number] IMPRESSION: No evidence of fracture or dislocation.
--- NOTE | 2024-09-19 13:49 | CTR_ITS ---
PROCEDURE INFORMATION: Exam: CT Lumbar Spine Without Contrast Exam date and time: 09/19/2024 2:17 PM Age: 59 years old Clinical indication: Injury or trauma; Fall; Blunt trauma (contusions or hematomas); Additional info: Back pain fall radiculopathy TECHNIQUE: Imaging protocol: Computed tomography of the lumbar spine without contrast. Radiation optimization: All CT scans at this facility use at least one of these dose optimization techniques: automated exposure control; mA and/or kV adjustment per patient size (includes targeted exams where dose is matched to clinical indication); or iterative reconstruction. COMPARISON: CR XR lumbar spine 2-3V* [id number] 10/30/2023 2:15 PM RADIATION DOSE METRICS: Total DLP (mGy-cm): 700.6 FINDINGS: Bones/joints: No acute fracture. There is stable sclerotic lesion in right medial ilium which could be bone island. No scoliosis. There is some disc height loss with vacuum disc at L4-L5 and L5-S1. There are lumbar disc bulges, thickening of ligamentum flavum, and facet degenerative changes. There is slight spinal canal narrowing L2-L3. There is likely mild spinal canal narrowing at L3-L4 and moderate L4-L5 where there is also likely significant narrowing of superior aspect of L5 subarticular recesses. There is bilateral neural foraminal narrowing at L4-L5 and L5-S1. Vasculature: Atherosclerotic change without evidence of aneurysm visualized vessels. Soft tissues: Unremarkable. CT/CT lumbar spine wo con* [id number] IMPRESSION: No acute fracture. Degenerative changes.
--- NOTE | 2024-09-19 13:49 | XRR_ITS ---
PROCEDURE INFORMATION: Exam: XR Pelvis Exam date and time: 09/19/2024 2:20 PM Age: 59 years old Clinical indication: Injury or trauma; Fall; Blunt trauma (contusions or hematomas); Bilateral; Pelvic region; Prior surgery; Surgery date: 6+ months; Surgery type: Lt hip; Additional info: Pain trauma TECHNIQUE: Imaging protocol: Radiologic exam of the pelvis. Views: 1 or 2 view. COMPARISON: CR XR pelvis 1-2V* [id number] 03/21/2023 9:03 AM FINDINGS: Bones/joints: There is no evidence of acute fracture. No dislocation. Internal fixation of left proximal femur. Osteoarthritis of both hips appear stable. Degenerative changes are noted in lower lumbar spine. Soft tissues: Unremarkable. XR/XR pelvis 1-2V* [id number] IMPRESSION: No evidence of fracture or dislocation.
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
--- NOTE | 2024-09-19 13:49 | XRR_ITS ---
PROCEDURE INFORMATION: Exam: XR Right Tibia and Fibula Exam date and time: 09/19/2024 2:20 PM Age: 59 years old Clinical indication: Injury or trauma; Fall; Blunt trauma; Lower leg; Right; Additional info: Ttp TECHNIQUE: Imaging protocol: Radiologic exam of the right tibia and fibula. Views: 2 views. COMPARISON: CR (LOW EXM, ) 09/19/2024 2:20 PM FINDINGS: Bones/joints: There is no evidence of acute fracture. No dislocation. Ankle findings described on ankle x-ray. Soft tissues: Normal. XR/XR tibia fibula RT 2V [id number] IMPRESSION: No evidence of fracture or dislocation.
--- NOTE | 2024-09-19 13:49 | CTR_ITS ---
PROCEDURE INFORMATION: Exam: CT Cervical Spine Without Contrast Exam date and time: 09/19/2024 2:14 PM Age: 59 years old Clinical indication: Injury or trauma; Fall; Blunt trauma TECHNIQUE: Imaging protocol: Computed tomography of the cervical spine without contrast. Radiation optimization: All CT scans at this facility use at least one of these dose optimization techniques: automated exposure control; mA and/or kV adjustment per patient size (includes targeted exams where dose is matched to clinical indication); or iterative reconstruction. 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 No spondylolisthesis. No compression deformity. No acute fracture. The cervical spine demonstrates moderate degenerative changes at multiple levels. No acute fracture. Lungs: Lung apices are normal. Soft tissues: Unremarkable. CT/CT cervical spin wo con* [id number] IMPRESSION: No acute posttraumatic changes in the cervical spine.
[2024-09-19] MEDS: ketorolac 30 mg/mL INJ IM (15:34)
[2024-09-19 15:40] VITALS: PULSE 59; RESP 16; O2SAT 98
--- NOTE | 2024-09-19 15:55 | W.ED.EXTPRO ---
HPI - Extremity Problem General: Chief complaint: Extremity Injury, Lower Stated complaint: pain in rt leg and lower back Time Seen by Provider: 09/19/24 13:13 History of Present Illness: Patient is a 59-year-old man that presents to the emergency department with complaints of right ankle, right tibia, right hip pain. Patient also notes neck pain and back pain. This all started last night when he had a slip and fall. He reports that he rotated this leg which caused him to fall. Patient does not recall hitting his head but he reports there was no loss of consciousness. He does have a small abrasion to his right moravian. Patient reports he was unable to bear weight. He had to be assisted back to the house. He woke up this morning with right ankle pain, swelling on the medial aspect. CMS intact, no open wounds. Pinpoint tenderness in his low back. Neck pain but no radiculopathy Related Data Home Medications Medication Instructions Recorded Confirmed clobetasol 0.05 % topical cream See Rx Instructions .Route .COMPLEX 09/19/24 09/19/24 epinephrine 0.3 mg/0.3 mL See Rx Instructions .Route .COMPLEX 09/19/24 09/19/24 injection, auto-injector ondansetron 4 mg disintegrating 4 mg PO BID PRN Nausea And Vomiting 09/19/24 09/19/24 tablet Previous Rx's Medication Instructions Recorded cetirizine 10 mg tablet (Zyrtec) 10 mg PO DAILY 90 days #90 tabs 07/02/23 cyclobenzaprine 10 mg tablet 10 mg PO TID PRN muscle spasm #90 12/10/23 tabs hydrocortisone 2.5 % topical cream 1 applic topical QID PRN skin 04/16/24 irritation #30 grams pantoprazole 40 mg tablet,delayed 40 mg PO DAILY 30 days #30 tabs 07/13/24 release (Protonix) losartan 25 mg tablet 25 mg PO DAILY 30 days #30 tabs 08/26/24 hydrocodone 5 mg-acetaminophen 325 1 tab PO Q4H PRN pain #20 tabs 09/19/24 mg tablet Allergies Allergy/AdvReac Type Severity Reaction Status Date / Time No Known Allergies Allergy Verified 09/19/24 13:11 Review of Systems General: Reports: 10 or more systems reviewed and unremarkable except in HPI and below [facility] PFSH: Medical History Rectus diastasis Hx of hiatal hernia Surgical History History of esophagogastroduodenoscopy (EGD) showed hiatal hernia 4-5 yrs ago Social History Smoking and tobacco/nicotine status: former use of tobacco/nicotine Alcohol intake: former Substance/Drug Use: current Physical Exam Const: COMMON NORMALS: no acute distress, patient oriented x3 and alert GENERAL APPEARANCE: cooperative ORIENTATION/CONSCIOUSNESS: Yes awake, Yes oriented to person, Yes oriented to place and Yes oriented to time HENMT: COMMON NORMALS: normocephalic and atraumatic HEAD & SCALP: normocephalic and atraumatic FACE & SINUS: normal facial exam MOUTH: Normal oral and palatal mucosa present THROAT: posterior oropharynx normal Eye: COMMON NORMALS: Equal, round and reactive pupils present, EOMs intact bilaterally, conjunctivae normal and no scleral icterus GENERAL EYE: appearance normal, both eyes and all related structures ALIGNMENT: Yes alignment normal PERIORBITAL: periorbital findings normal CONJUNCTIVA: Yes conjunctivae normal PUPIL: Yes Equal, round and reactive pupils present Neck/C-Spine: COMMON NORMALS: full ROM GENERAL: Yes normal visual inspection Lymph: LYMPHATIC: no lymphadenopathy noted Chest: COMMONS NORMALS: normal inspection of the chest Breast/axilla inspection: Yes no chest deformity, asymmetry, normal contours, no nodules, masses, tenderness Resp: COMMON NORMALS: normal respiratory effort, No retractions, No use of accessory muscles and clear to auscultation bilaterally EFFORT & INSPECTION: Yes able to speak in complete sentences and Yes symmetric chest movement AUSCULTATION: clear to auscultation bilaterally Cardio: COMMON NORMALS: regular rate, regular rhythm and Peripheral pulses 2+ throughout RATE: regular rate RHYTHM: regular rhythm PERIPHERAL PULSES: Peripheral pulses 2+ throughout GI: COMMON NORMALS: Normal to inspection, nondistended, normoactive bowel sounds present, Soft to palpation, non-tender and No hepatosplenomegaly present INSPECTION: Yes normal to inspection AUSCULTATION: Yes normoactive bowel sounds PALPATION: Yes Soft to palpation and Yes No hepatosplenomegaly present RECTAL EXAM: Yes deferred Back/Pelvis: OTHER: Cervical spine: Nontender to palpation Does have paraspinal muscle tenderness. Pulp Screen Operator, bicep, tricep, deltoid 5/5 strength. No Britton Sensation intact to light touch throughout nerve distributions of the upper extremities No thoracic pain or tenderness Lumbar spine: Pinpoint tenderness over low back right of midline. Difficult to tell if it is SI versus lower lumbar. 5/5 strength in hip flexor, quad, ant tib and toe extensor I attended to assess for clonus in left lower extremity since he has right ankle swelling and pain. Patient did not cooperate with exam. Questionable clonus during parts of the exam but then not present with other Sensation intact to light touch throughout the bilateral lower extremities. Extremity: COMMON NORMALS: normal to inspection GENERAL: Yes normal exam except as noted Neuro: COMMON NORMALS: patient oriented x3 SENSORIUM/ORIENTATION: Yes alert, Yes oriented to person, Yes oriented to place and Yes oriented to time CRANIAL NERVES: Yes CN normal except as noted Psych: COMMON NORMALS: mental status grossly normal, Normal thought process present, cooperative, activity/motor behavior normal, denies homicidal ideation and denies suicidal ideation THOUGHT PROCESS: Normal thought process present Skin: COMMON NORMALS: no rashes or lesions noted, no wounds and turgor normal GENERAL SKIN EXAM: no rashes or lesions noted and turgor normal Course Vital Signs: Vital signs: Vital Signs Temperature 98.5 F 09/19/24 13:06 Pulse Rate 61 09/19/24 16:59 Respiratory Rate 16 09/19/24 15:40 Blood Pressure 165/94 09/19/24 16:59 Pulse Oximetry 97 09/19/24 16:59 Oxygen Delivery Me thod Room Air 09/19/24 13:06 MDM - Extremity (Nontraumatic) Medical Decision Making Patient underwent diagnostic evaluation for head trauma, neck pain, pelvic pain, lumbar pain, tibial pain, ankle pain XR/CT imaging reveals the following: CT head no acute intracranial abnormalities CT cervical spine reveals no acute traumatic injuries. However there is evidence of pretty significant spondylosis at C5/C6 and C6/C7 with moderate to severe central stenosis. Would recommend an MRI of the cervical spine to evaluate further. CT of the lumbar spine reveals degenerative disc disease with disc bulges at multiple levels but no significant foraminal or central stenosis. XR pelvis reveals no acute findings. XR tibia reveals no acute findings. XR ankle reveals no acute findings. He does have significant swelling in the medial aspect of the right ankle. I am assuming patient has had some ligamentous strain or sprain. Patient reluctant to bear any weight on the extremity or work on range of motion. Going to place him in a removable boot and provided him with crutches for ambulation. He is also being given a shower chair to assist with safe showering. I have encouraged him to follow-up with Dr. Moscoso and his primary care doctor regarding his chronic and acute on chronic complaints. If his ankle or knee are not improved in 5 days, he needs to be reevaluated by his primary care doctor for possible reimaging. Patient verbalized understanding and all questions were answered Lab Data Radiology Impressions Ankle X-Ray 09/19/24 13:49 IMPRESSION: No evidence of fracture or dislocation. Cervical Spine CT 09/19/24 13:49 IMPRESSION: No acute posttraumatic changes in the cervical spine. Head CT 09/19/24 13:49 IMPRESSION: No acute intracranial posttraumatic changes. Lumbar Spine CT 09/19/24 13:49 IMPRESSION: No acute fracture. Degenerative changes. Pelvis X-Ray 09/19/24 13:49 IMPRESSION: No evidence of fracture or dislocation. Tibia/Fibula X-Ray 09/19/24 13:49 IMPRESSION: No evidence of fracture or dislocation. All radiology interpretation(s) finalized by discharge Discharge Plan Discharge Patient Disposition: Home Clinical Impression: Neck pain, Unsteady gait, Chronic pain, Ankle sprain and strain Chronic low back pain with bilateral sciatica Qualifiers: Back pain laterality: bilateral Qualified Code(s): M54.42 - Lumbago with sciatica, left side Condition: Stable Prescriptions: New hydrocodone-acetaminophen 5-325 mg tablet 1 tab PO Q4H PRN (Reason: pain) Qty: 20 0RF No Action cetirizine [Zyrtec] 10 mg tablet 10 mg PO DAILY 90 Days Qty: 90 1RF cyclobenzaprine 10 mg tablet 10 mg PO TID PRN (Reason: muscle spasm) Qty: 90 1RF hydrocortisone 2.5 % cream 1 applic topical QID PRN (Reason: skin irritation) Qty: 30 2RF pantoprazole [Protonix] 40 mg tablet,delayed release (DR/EC) 40 mg PO DAILY 30 Days Qty: 30 0RF losartan 25 mg tablet 25 mg PO DAILY 30 Days Qty: 30 0RF clobetasol 0.05 % cream See Rx Instructions .ROUTE .COMPLEX Rx Instructions: APPLY TWICE DAILY TO RASH. NOT FOR USE ON FACE, GROIN OR SKIN FOLDS. STOP APPLICATIONS WHEN CLEAR. epinephrine 0.3 mg/0.3 mL auto-injector See Rx Instructions .ROUTE .COMPLEX Rx Instructions: INJECT CONTENTS OF 1 PEN NEEDED FOR ALLERGIC REACTION DIRECTED. ondansetron 4 mg tablet,disintegrating 4 mg PO BID PRN (Reason: Nausea And Vomiting) Discharge Orders: Discharge ED (Routine); Ordered 09/19/24 Ordered By: Kandace Harris Other Ambulatory Orders: DME: Miscellaneous (Order) Location: None Selected Ordered By: Kandace Harris DME: Shower Chair (Order) Location: None Selected Ordered By: Kandace Harris Referrals: Kevin Moscoso DO [Physician] - Victoria Wade FNP [Primary Care Provider] - Discharge Diet: Advance as tolerated Discharge Activity: Resume usual activity and Increase activity as tolerated Patient Instructions: Ankle Sprain (ED), Cervical Spinal Stenosis (ED), Chronic Back Pain (DC), Fall Prevention (ED), Lower Back Exercises (ED), Opioid Safety, Pain Management Activity Restrictions/Additional Instructions: Please use your crutches until you are able to bear full weight on the right leg. You can use the removable boot but I want you coming out of the boot every day to work on ankle range of motion. If you are not better in 5 days then you need to follow-up with your primary care doctor for reimaging. I provided you with Dr. Kevin Moscoso's name and contact. He is a physician in the area that works on issues both in the neck and low back. Please call your primary care office or his office to set up an appointment. Coding Level of Care Code ED Bread Wrapper Operator for Luc Medrano
[2024-09-19] MEDS: oxyCODONE-APAP 5-325 mg Tablet 1 TAB PO (16:27)
[2024-09-19 16:59] VITALS: BP 165/94; PULSE 61; O2SAT 97
== END 2024-09-19 17:01 | disposition home or self-care (01) ==
PROVIDERS: Emergency Provider Nurse Practitioner; PCP Nurse Practitioner Family
DX: M54.2 Cervicalgia (principal); R26.81 Unsteadiness on feet; G89.29 Other chronic pain; S93.401A Sprain of unspecified ligament of right ankle, initial encounter; M54.42 Lumbago with sciatica, left side; Z87.891 Personal history of nicotine dependence; W01.0XXA Fall on same level from slipping, tripping and stumbling without subsequent striking against object, initial encounter
CPT/HCPCS: 70450; 72125; 72131; 72170; 73590; 73610; 96372; 99284; E0114; J1885

== ENCOUNTER → 2024-10-04 15:09 | Outpatient (BNVA) | payer MEDICAID, SELFPAY | PROVIDERS: PCP Nurse Practitioner Family; Visit Provider Nurse Practitioner Family | DX: G62.9 Polyneuropathy, unspecified (principal); I10 Essential (primary) hypertension | CPT/HCPCS: 80053; 80061; 82306; 82607; 83735; 84443; 84550; 85025; 85651; 86038; 86140; 86200; 86431; G0103 ==

== ENCOUNTER → 2024-10-05 15:31 | Outpatient (BNVA) | payer MEDICAID, SELFPAY | PROVIDERS: PCP Nurse Practitioner Family; Visit Provider Orthopaedic Surgery | DX: M54.6 Pain in thoracic spine (principal); G89.29 Other chronic pain; M54.42 Lumbago with sciatica, left side; M54.41 Lumbago with sciatica, right side; M54.2 Cervicalgia; M47.12 Other spondylosis with myelopathy, cervical region | CPT/HCPCS: 72050; 72110 ==

== ENCOUNTER 2024-10-08 14:38 | Outpatient (CLI) | payer MEDICAID, SELFPAY ==
--- NOTE | 2024-10-08 14:30 | USCV_ITS ---
Pilo Gonzalez Age: 59 Gender: M : 1965 Exam Date: 10/08/2024 14:43 Ordering Phys: Victoria Wade TOE POUNDER TOE POUNDER Technologist: R Exam Location: [facility] [place] Indication: right leg pain HISTORY: Right lower extremity pain PROCEDURES: Venous duplex imaging was performed in only the right lower extremity. The following venous structures were evaluated: common femoral vein, profunda vein, proximal portion of the greater saphenous vein, superficial femoral vein, and the popliteal vein. In addition, the posterior tibial and peroneal trunk were evaluated. FINDINGS: Normal 2-D Doppler and augmentation and compressibility throughout the lower extremity venous structures. Additional imaging through the proximal calf veins also reveals no thrombus. Limited evaluation of the greater saphenous vein is patent with no thrombus. CONCLUSIONS No DVT right lower extremity. Dr. Yuly Cartwright DO (Electronically Signed) Final Date: 08 October 2024 15:13 S
--- NOTE | 2024-10-08 16:00 | MR_ITS ---
WS: [id number] MRI CERVICAL SPINE NONCONTRAST TECHNIQUE: Sagittal T1, T2 and STIR imaging. Axial T2, gradient, and fiesta imaging. CLINICAL INFORMATION: cervical pain radiating to arms. COMPARISON: None. FINDINGS: Straightening of the normal cervical doses. Moderate spondylitic changes cervical spine. 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 Severe central canal stenosis C4-C5 C5-C6 C6-C7 with indentation and flattening of the cervical cord. Associated my elomalacia in the cervical cord at C4-C6. C2-C3: Shallow central protrusion. Slight indentation on the cervical cord. Mild LEFT and no signific ant RIGHT foraminal narrowing. Mild facet arthropathy. C3-C4: Central disc osteophyte protrusion with indentation on the cervical cord. Mild central canal s tenosis. Severe LEFT and mild RIGHT bony foraminal narrowing. Mild facet arthropathy. C4-C5: Ossification of the posterior longitudinal ligament. Severe central canal stenosis with indent ation and flattening of the cervical cord. Moderate to severe LEFT greater than RIGHT bony foraminal narrowing. Moderate facet arthropathy. C5-C6: Ossification of the posterior longitudinal ligament with severe central canal stenosis. Indent ation and flattening of the cervical cord. Severe bilateral bony foraminal narrowing RIGHT greater th an LEFT. Moderate facet arthropathy. Uncovertebral joint hypertrophy. C6-C7: Ossification of the posterior longitudinal ligament with a central disc osteophyte protrusion. Indentation and flattening of the cervical cord. Severe LEFT greater than RIGHT bony foraminal narro wing. Moderate facet arthropathy. C7-T1: Tiny central protrusion. Moderate to severe LEFT no significant RIGHT bony foraminal narrowing . Spinal canal is patent. Visualized brain stem structures: Normal. Prevertebral soft tissues: Normal. MR/MR cervical spin wo con* [id number] IMPRESSION: 1. Ossification of the posterior longitudinal ligament C4-C6 as seen on the re cent CT. 2. Severe central canal stenosis C4-C5 C5-C6 and C6-C7 with indentation and fl attening of the cervical cord. Associated myelomalacia in the cervical cord at these levels. 3. Mild central canal stenosis with a small central protrusion C3-4. 4. Multilevel moderate to severe bony foraminal narrowing worse at bilateral C 4-5, bilateral C5-C6 worse on the RIGHT, bilateral C6-7, and LEFT C7-T1.
== END 2024-10-08 14:39 | disposition home or self-care (01) ==
LOC: RAD 14:39
PROVIDERS: PCP Nurse Practitioner Family; Visit Provider Nurse Practitioner Family
DX: M47.22 Other spondylosis with radiculopathy, cervical region (principal); M79.604 Pain in right leg; M54.42 Lumbago with sciatica, left side; M54.41 Lumbago with sciatica, right side; G89.29 Other chronic pain; R29.6 Repeated falls; R93.89 Abnormal findings on diagnostic imaging of other specified body structures; M48.02 Spinal stenosis, cervical region; G95.89 Other specified diseases of spinal cord; M50.21 Other cervical disc displacement, high cervical region; M48.03 Spinal stenosis, cervicothoracic region; M46.82 Other specified inflammatory spondylopathies, cervical region; M47.892 Other spondylosis, cervical region
CPT/HCPCS: 72141; 93971

== ENCOUNTER 2024-10-14 10:29 | Outpatient (CLI) | payer MEDICAID, SELFPAY ==
--- NOTE | 2024-10-14 10:30 | US_ITS ---
WS: [id number] RIGHT UPPER QUADRANT ULTRASOUND HISTORY: R10.11 - Right upper quadrant pain COMPARISON: 09/17/2022 Liver: 17.3 cm in length. Top normal size liver with coarse echotexture. Loss of the normal portal tr iads. No mass or intrahepatic bile duct dilatation. Portal Vein: Normal hepatopetal flow with monophasic waveform. Gallbladder: No cholelithiasis. Small amount of sludge in the gallbladder. CBD: 0.4 cm Pancreas: Normal size and echogenicity. Right kidney: 10.7 cm in length. Normal size and echogenicity. No hydronephrosis or mass. Aorta and IVC: Unremarkable abdominal aorta and IVC. No ascites. US/US gall bladder [id number] IMPRESSION: 1. Top normal size liver with mild hepatic steatosis. 2. No cholelithiasis. There is a tiny amount of sludge in the gallbladder whic h may be due to prolonged fasting state. 3. No intrahepatic biliary duct dilatation.
== END 2024-10-14 10:30 | disposition home or self-care (01) ==
PROVIDERS: PCP Nurse Practitioner Family; Visit Provider Nurse Practitioner Family
DX: R10.11 Right upper quadrant pain (principal); K76.0 Fatty (change of) liver, not elsewhere classified; R93.2 Abnormal findings on diagnostic imaging of liver and biliary tract
CPT/HCPCS: 76705

== ENCOUNTER → 2024-10-19 12:30 | Outpatient (BNVA) | payer MEDICAID, SELFPAY | PROVIDERS: PCP Nurse Practitioner Family; Visit Provider Orthopaedic Surgery | DX: M47.12 Other spondylosis with myelopathy, cervical region (principal); Z09 Encounter for follow-up examination after completed treatment for conditions other than malignant neoplasm; M47.22 Other spondylosis with radiculopathy, cervical region | CPT/HCPCS: 36415; 80053; 81001; 85025 ==

== ENCOUNTER 2024-11-01 09:28 | Outpatient (CLI) | payer MEDICAID, SELFPAY ==
--- NOTE | 2024-11-01 10:00 | NM_ITS ---
WS: [id number] NUCLEAR MEDICINE HIDA SCAN CLINICAL INFORMATION: K82.8 - Other specified diseases of gallbladder TECHNIQUE: Following intravenous administration of 8.1 mCi of technetium 99m mebrofenin, images of the abdomen were obtained over the course of 60 minutes. Next, gallbladder ejection fraction was determined by obtaining preprandial and one-hour postprandial images of the gallbladder following oral ingestion of Ensure. FINDINGS: Normal hepatic uptake at 5 minutes. Normal hepatic excretion. Hepatomegaly. Normal common bile duct and small bowel activity. Gallbladder is visualized by 15 minutes. No evidence of acute cholecystitis. Gallbladder is somewhat contracted. Gallbladder ejection fraction 86% within normal limits. No evidence of chronic cholecystitis. NM/NM hepatobiliary w phar* [id number] IMPRESSION: 1. No evidence of acute or chronic cholecystitis. 2. Gallbladder ejection fraction 86% within normal limits.
== END 2024-11-01 09:29 | disposition home or self-care (01) ==
LOC: RAD 09:29
PROVIDERS: PCP Nurse Practitioner Family; Visit Provider Nurse Practitioner Family
DX: K82.8 Other specified diseases of gallbladder (principal); R16.0 Hepatomegaly, not elsewhere classified; R93.3 Abnormal findings on diagnostic imaging of other parts of digestive tract
CPT/HCPCS: 78227; A9537

== ENCOUNTER 2024-11-08 15:18 | Inpatient (IN) | payer MEDICAID, SELFPAY ==
[2024-11-08] VITALS (22 sets, daily range): BP systolic 141–208; BP diastolic 69–117; PULSE 64–78; RESP 14–25; TEMP 36.1–36.8; O2SAT 93–100; BMI 26.9
--- NOTE | 2024-11-08 11:46 | W.PM.OPSUD ---
Surgery/Procedure H&P Update DATE OF PROCEDURE: November 08, 2024 DATE H&P PERFORMED: 11/02/24 H&P UPDATE INFORMATION: I have reviewed H&P completed within last 30 days, I have examined patient prior to procedure and No changes to prior documentation PREOP DIAGNOSIS: Cervical stenosis with myelopathy PLANNED PROCEDURE: Operation Date: 11/08/24 13:20 Proposed Procedures p Cervical Posterior Fusion(Not Applicable) - Kevin Moscoso DO s Cervical Decompression(Not Applicable) - Kevin Moscoso DO
--- NOTE | 2024-11-08 12:00 | P.ANESASSM_ITS ---
Pre-Anesthetic Assessment Height/Weight: Height 1.7 m Weight 78.018 kg O2 Del Method Room Air 11/08/24 11:39 Preop Diagnosis: Cervical stenosis with myelopathy Operation Date: 11/08/24 13:20 Proposed Procedures p Cervical Posterior Fusion(Not Applicable) - Kevin Moscoso DO s Cervical Decompression(Not Applicable) - Kevin Moscoso DO Familial anesthetic complications: Woke up during an extremity surgery, he was able to look around and see the OR during the event Was Beta Romeo taken within 24 hours: N/A Was Clonidine taken within 24 hours: N/A Last intake: Intake Last Liquid Date 11/07/24 Last Liquid Time 20:00 Last Solid Date 11/07/24 Last Solid Time 20:00 Social Alcohol (wine) and No tobacco Exam alert, oriented x 3, clear to auscultation bilaterally and regular rate & rhythm Airway Mallampati: Class III Dentition: other (no upper teeth) Pulmonary Chronic Obstructive Pulmonary Disease and Sleep Apnea CV/HEM Arrythmia (palpitations occasionally ) and Hypertension Able to achieve > 4 METS without cardiac symptoms Hepatic Hepatitis (hep C s/p treatment) GI Gastroesophageal Reflux Disease Neuropsych Hx TBI Anesthetic Plan ASA status: 3 Anesthesia: General Risk of > 500 ml blood loss (7ml/kg in children): No Other Pertinent Information alpha gal allergy Medications/Allergies Home Medications ?Medication ?Instructions ?Recorded ?Confirmed ?Last Taken ?Type cetirizine 10 mg tablet (Zyrtec) 10 mg PO DAILY 90 day s #90 tabs 07/02/23 11/08/24 11/04/24 Rx cyclobenzaprine 10 mg tablet 10 mg PO TID PRN muscle s pasm #90 12/10/23 11/08/24 11/04/24 Rx tabs clobetasol 0.05 % topical cream 1 applic topical BID 0 09/19/24 11/08/24 11/05/24 History epinephrine 0.3 mg/0.3 mL See Rx Instructions .Route . COMPLEX 09/19/24 11/08/24 Unknown History injection, auto-injector losartan 25 mg tablet 25 mg PO DAILY 90 days #90 t abs 10/04/24 11/08/24 11/08/24 04:00 Rx jose (Zingiber officinalis) 500 500 mg PO DAILY 09/1611/08/24 Unknown History mg capsule omeprazole 40 mg capsule,delayed 40 mg PO BID 10/19/24 11/08/24 Unknown History release hydrocodone 5 mg-acetaminophen 325 1 tab PO Q6H PRN pa in 14 days #56 11/04/24 11/08/24 11/05/24 Rx mg tablet tabs hydrocortisone 2.5 % topical cream 1 applic topical QI D PRN skin 11/04/24 11/08/24 Unknown Rx irritation #30 grams ondansetron 4 mg disintegrating 4 mg PO BID PRN Nausea And 11/05/24 11/08/24 11/08/24 Rx tablet Vomiting #30 tabs Allergies Allergy/AdvReac Type Severity Reaction Status Date / Time heparin Allergy Intermediate Unknown Verified 11/08/24 11:20 alpha gal Allergy Intermediate ADR-Nausea Uncoded 11/08/24 11:19 PFSH Anesthesia Medical History Rectus diastasis Hx of hiatal hernia Surgical History History of esophagogastroduodenoscopy (EGD) showed hiatal hernia 4-5 yrs ago Social History Smoking and tobacco/nicotine status: never used tobacco/nicotine Alcohol intake: former Substance/Drug Use: current Data Anesthesia Cardiac Studies: No Data to Display
[2024-11-08] MEDS: sodium chloride 0.9% 1,000 ML 30 ML IV (12:03)
[2024-11-08] MEDS: scopolamine 1 mg PATCH 1 PATCH TRANSDERMA (12:23)
[2024-11-08] MEDS: ceFAZolin 2,000 mg SDV 2000 MG IVP ×2 (12:38→22:09)
[2024-11-08] MEDS: VANCOMYCIN ADD-Vantage 1,000 MG VIAL 1000 MG XX (13:27)
[2024-11-08] MEDS: lidocaine-epi 1% 20 mL INJ 10 ML INJECTION (13:27)
--- NOTE | 2024-11-08 15:13 | XR_ITS ---
WS: [id number] Cervical spine, C ARM fluoroscopy views, 11/08/2024 10/05/2024 Clinical Data: OR P[facility] Comparison: Cervical spine, 10/05/2024 Findings: Dr. Moscoso performed a posterior cervical thoracic fusion. XR/XR cervical spine 3V* [id number] Impression: Posterior cervical thoracic fusion.
--- NOTE | 2024-11-08 15:32 | P.OP_ITS ---
Operative Report Date of procedure: November 08, 2024 Pre-op diagnosis: Cervical stenosis with myelopathy Post-op diagnosis: same Procedure done: 1. C2-T2 posterior cervical fusion 2. C2-T2 instrumentation 3. C3/4 laminectomy with partial facetectomies 4. C4/5 laminectomy with partial facetectomies 5. C5/6 laminectomy with partial facetectomies 6. C6/7 laminectomy with partial facetectomies 7. C7/T1 laminectomy with partial facetectomies 8. use of computer navigation/Stereotactic for spine 9. use of autograft from same incision 10. Use of allograft Surgeon: Kevin Moscoso DO Estimated blood loss (mL): 50 Procedure: 1. C2-T2 posterior cervical fusion 2. C2-T2 instrumentation 3. C3/4 laminectomy with partial facetectomies 4. C4/5 laminectomy with partial facetectomies 5. C5/6 laminectomy with partial facetectomies 6. C6/7 laminectomy with partial facetectomies 7. C7/T1 laminectomy with partial facetectomies 8. use of computer navigation/Stereotactic for spine 9. use of autograft from same incision 10. Use of allograft Patient brought to the operative suite after undergoing anesthesia was placed in the prone position. Neuro monitoring was attached to the patient is throughout the entire case. Patient was placed so that was no areas impingement. Patient was then prepped and draped normal sterile fashion. Skin incision is made from C2 down to T2. Cervical fascia was identified. Retractors were placed. Subperiosteal dissection was made out from the spinous process of C2 out to the lateral masses of C2. Down to C3, C4, C5, C6, C7, and out to the transverse processes of T1 and T2. This was done bilaterally. Next attention was brought to placing a spinous process clamp on to T3. This was done in order to facilitate using the computer navigation. The C-arm was brought in and spun around patient and the information from the C-arm was loaded in the computer to facilitate placing screws using computer navigation. Next attention was brought to placing screws. Attention was first brought to doing the pedicle screws at T1-T2. This was done by using high-speed bur. Followed by using the navigated drill followed by pedicle feeler followed by placement of the screws. 26 mm screws were used at each level. This process was done at T1 and T2 bilaterally. Once pedicle screws are completed navigation was then used on the C2 screws. The C2 pars screw was placed. This was done using the high-speed bur followed by the drill followed by placement of the screw. A 20 mm screw was placed bilaterally. The technique was used bilaterally. The screw was placed navigated. Lateral mass screws were then placed at C3-C4-C5 and C6 bilaterally. C7 was sk ipped. The body mass screws were done by using high-speed bur followed by a drill set at 12 mm. Followed by pedicle feeler followed by placement of the screw. The screws were 14 mm. Extension was brought to placing the rods from C2 down to T2. This was done by bending the leticia to adapt for the lordosis of the cervical spine and placing screws into the tulips and then locking them down again this was done from C2 down to T2 bilaterally. Rods were torqued into position. Next attention was brought to performing the laminectomies and partial facetectomies. Attention was brought to the C7-T1 level first. The ligamentum flavum was taken down between the interlaminar space. Was seen and lumbar space was opened up was used to help undermine and get the ligamentum flavum taken down from lateral mass lateral mass. High-speed bur was then used to take down the medial aspect of the facet joint as well as the lamina. Then the #2 Kerrison was used to finish off the gutter that was performed and also take down the medial aspect of the facet joint of C7 and T1. This was done bilaterally. The lamina was then elevated up and the facet joints were cleaned up with a Kerrison rongeur and curved curette was used to ensure that the nerve roots were freed up. Next attention was brought to the C6-7 level.The ligamentum flavum was taken down between the interlaminar space. Was seen and laminar space was opened up was used to help undermine and get the ligamentum flavum taken down from lateral mass lateral mass. High-speed bur was then used to take down the medial aspect of the facet joint as well as the lamina. Then the #2 Kerrison was used to finish off the gutter that was performed and also take down the medial aspect of the facet joint of C6 and C7. This was done bilaterally. The lamina was then elevated up and the facet joints were cleaned up with a Kerrison rongeur and curved curette was used to ensure that the nerve roots were freed up. Was brought to the C5-6 level.The ligamentum flavum was taken down between the interlaminar space. Was seen and laminar space was opened up was used to help undermine and get the ligamentum flavum taken down from lateral mass lateral mass. High-speed bur was then used to take down the medial aspect of the facet joint as well as the lamina. Then the #2 Kerrison was used to finish off the gutter that was performed and also take down the medial aspect of the facet joint of C5 and C6. This was done bilaterally. The lamina was then elevated up and the facet joints were cleaned up with a Kerrison rongeur and curved curette was used to ensure that the nerve roots were freed up. Next attention was brought to the C4-5 level. The ligamentum flavum was taken down between the interlaminar space. Was seen and laminar space was opened up was used to help undermine and get the ligamentum flavum taken down from lateral mass lateral mass. High-speed bur was then used to take down the medial aspect of the facet joint as well as the lamina. Then the #2 Kerrison was used to finish off the gutter that was performed and also take down the medial aspect of the facet joint of C4 and C5. This was done bilaterally. The lamina was then elevated up and the facet joints were cleaned up with a Kerrison rongeur and curved curette was used to ensure that the nerve roots were freed up. Next attention was brought to the C3-4 level. The ligamentum flavum was taken down between the interlaminar space. Was seen and laminar space was opened up was used to help undermine and get the ligamentum flavum taken down from lateral mass lateral mass. High-speed bur was then used to take down the medial aspect of the facet joint as well as the lamina. Then the #2 Kerrison was used to finish off the gutter that was performed and also take down the medial aspect of the facet joint of C3 and C4. This was done bilaterally. The lamina was then elevated up and the facet joints were cleaned up with a Kerrison rongeur and curved curette was used to ensure that the nerve roots were freed up. Once decompression was done at each level. Attention was then brought to decorticating the lateral masses from C2-C7. As well as the lamina and transverse processes of T1 and T2. This was done bilaterally. Then the autograft from the lamina of the shoulder was packed into the lateral gutters along with ostial amp bone graft. Vancomycin powder and deep drain was placed in the wound. Wound was then closed in layered fashion with 0 Vicryl 2-0 Vicryl and Monocryl suture. Sterile dressings were applied patient was transferred to the PACU in stable condition.
[2024-11-08] MEDS: labetalol 5 mg/mL SDV 20mL 10 MG IVP ×2 (15:40→16:00)
[2024-11-08] MEDS: fentaNYL 50 mcg/mL INJ 2mL IVP ×2 (15:43→15:52)
[2024-11-08] MEDS: HYDROmorphone 1 mg/mL INJ 1 mL 0.5 MG IVP (16:12)
[2024-11-08] MEDS: hyDRALAzine 20 mg/mL INJ 1 mL 10 MG IVP (16:18)
--- NOTE | 2024-11-08 17:00 | ANE.PACU2 ---
Inpatient post-anesthesia follow up: Airway intact: Yes Vital signs: Temperature 97.8 F Pulse Rate 73 Respiratory Rate 20 Blood Pressure 169/84 Pulse Oximetry 98 Oxygen Delivery Me thod Room Air Oxygen Flow Rate Fraction of Inspir ed Oxygen Hydration adequate: Yes Nausea and vomiting: No Pain level: 4 Mental status: Baseline
--- NOTE | 2024-11-08 17:16 | SUR.PHASEI ---
Gave report per phone to FAISAL Bond. Ten minutes after arrival to floor Ronda entered room and dismissed this nurse prior to vitals being taken, no vitals machine in room.
[2024-11-08] MEDS: pantoprazole DR 40 mg Tablet PO (17:32)
[2024-11-08] MEDS: HYDROcodone-acetaminophen 10-325 mg Tablet PO ×2 (17:32→22:09)
[2024-11-08] MEDS: docusate sodium 100 mg Capsule PO (17:32)
[2024-11-08] MEDS: lactated ringers 1,000 ML 90 ML IV (17:32)
[2024-11-08] MEDS: ketorolac 30 mg/mL INJ IVP ×2 (17:33→23:31)
[2024-11-08] MEDS: cyclobenzaprine 10 mg Tablet PO ×2 (17:33→23:31)
[2024-11-08] MEDS: morphine 4 mg/mL SDV 1 mL 2 MG IVP ×2 (18:18→23:32)
[2024-11-08] MEDS: ondansetron 2 mg/ML SDV 2 mL 4 MG IVP (22:10)
[2024-11-09] VITALS (9 sets, daily range): BP systolic 139–171; BP diastolic 70–77; PULSE 60–91; RESP 15–20; TEMP 36.4–36.9; O2SAT 91–97
[2024-11-09] MEDS: HYDROcodone-acetaminophen 10-325 mg Tablet PO ×4 (05:22→19:47)
[2024-11-09] MEDS: ceFAZolin 2,000 mg SDV 2000 MG IVP ×2 (05:23→15:13)
[2024-11-09] MEDS: lactated ringers 1,000 ML 90 ML IV ×2 (05:23→23:40)
--- NOTE | 2024-11-09 07:24 | P.DS_ITS ---
Discharge Providers Date of Admission: 11/08/24 15:18 Date of Discharge: November 09, 2024 Attending Provider at Admission: Kevin Moscoso DO Attending Provider at Discharge: Kevin Moscoso DO Primary Care Provider: RAIMUNDO Baker Reason for Visit Reason for Visit: M48.X2 Physical Exam Narrative: Patient pain control has been up going to the bathroom no complaints at this time. Hemovac drain had 160 out overnight Urinary Catheter Management: Tyson: Cath Placed During This Visit: yes Urinary Catheter Date of Insertion: 11/08/24 Urinary Catheter Time of Insertion: 13:00 Discharge Data Studies Completed and Pending Pending at discharge Category Date Time Status C-arm Fluoroscopy 39115 Routine Exams 11/08/24 11:15 Taken XR cervical spine 3V* [id number] Routine Exams 11/08/24 15:13 Taken Vitals Last Vital Signs Temp 98.0 F 11/09/24 03:51 Pulse 67 11/09/24 03:51 Resp 20 H 11/09/24 03:51 BP 147/77 11/09/24 03:51 Pulse Ox 95 11/09/24 03:51 O2 Del Method Room Air 11/09/24 03:51 O2 Flow Rate 2 11/09/24 00:00 Discharge Plan Discharge Patient Disposition: Home Condition: Stable Prescriptions: New hydrocodone-acetaminophen 5-325 mg tablet 1 - 2 tab PO .Q4-6H Qty: 40 0RF Continued cetirizine [Zyrtec] 10 mg tablet 10 mg PO DAILY 90 Days Qty: 90 1RF losartan 25 mg tablet 25 mg PO DAILY 90 Days Qty: 90 1RF cyclobenzaprine 10 mg tablet 10 mg PO TID PRN (Reason: muscle spasm) Qty: 90 1RF jose (Zingiber officinalis) 500 mg capsule 500 mg PO DAILY omeprazole 40 mg capsule,delayed release(DR/EC) 40 mg PO BID hydrocortisone 2.5 % cream 1 applic topical QID PRN (Reason: skin irritation) Qty: 30 2RF hydrocodone-acetaminophen 5-325 mg tablet 1 tab PO Q6H MDD 4 PRN (Reason: pain) 14 Days Qty: 56 0RF ondansetron 4 mg tablet,disintegrating 4 mg PO BID PRN (Reason: Nausea And Vomiting) Qty: 30 0RF clobetasol 0.05 % cream 1 applic topical BID Rx Instructions: APPLY TWICE DAILY TO RASH. NOT FOR USE ON FACE, GROIN OR SKIN FOLDS. STOP APPLICATIONS WHEN CLEAR. epinephrine 0.3 mg/0.3 mL auto-injector See Rx Instructions .ROUTE .COMPLEX Rx Instructions: INJECT CONTENTS OF 1 PEN NEEDED FOR ALLERGIC REACTION DIRECTED. Discharge Orders: Discharge Order (Routine); Ordered 11/09/24 Ordered By: Kevin Moscoso Discharge Diet: Advance as tolerated Discharge Activity: Limit activity as instructed Patient Instructions: Acute Wound Care (DC), Opioid Safety, Post Anesthesia Care Activity Restrictions/Additional Instructions: Thank you for choosing [facility] for your care! The following is a list of instructions, from your provider, to follow upon your discharge to ensure you have the optimal recovery from your recent injury or surgery. Anterior Cervical Discectomy and Fusion: What to Expect at Home Your Recovery Follow-up care is a ortega part of your treatment and safety. Be sure to make and go to all appointments, and call your doctor if you are having problems. If you do not already have a follow-up appointment made, call office in the next 1-3 days to make follow up appointment for 1 weeks at [phone]. It is also a good idea to know your test results and keep a list of the medicines you take. You can expect your neck to feel stiff or sore after surgery. This should improve in the weeks after surgery. But it may take 4 to 6 months for you to get better completely. You may have trouble sitting or standing in one position for very long and may need pain medicine in the weeks after your surgery. It may take 4 to 6 weeks to get back to your usual activities, but it may depend on what kind of surgery you had. Your throat will feel sore and it may be difficult to swallow for the first 3 days after your surgery. As long as you can get liquids down without difficulty, this should slowly improve, otherwise call our office or seek medical attention if it becomes increasingly difficult to get anything down including liquids. Avoid hot liquids for first 3-5 days. Soothing foods/liquids such as jello, pudding, and luke warm soups are recommended until swallowing improves. Staying elevated will also help, it's advised you keep propped up at while sleeping to help reduce the swelling. You may use an ice pack directly on your incision or around it on the front of your neck, using a cloth to protect your skin; and a heating pad to the back of your neck as needed. Do not use over the counter anti-inflammatory medications (Ibuprofen, Motrin, Aleve, Advil, etc) Taking these meds after having a fusion can delay fusion rates, we recommend you avoid them for the first 3 months after your surgery[address] Dr. Moscoso may advise you to work with a physical therapist to strengthen the muscles around your neck and back - this will be discussed at your follow - up appointments. The pain or numbness you were having in your arms before surgery should get better or go away completely. This care sheet gives you a general idea about how long it will take for you to recover. But each person recovers at a different pace. Follow the steps below to get better as quickly as possible. How can you care for yourself at home? Activity ? Rest when you feel tired. Getting enough sleep will help you recover. ? Try to walk each day. Start by walking a little more than you did the day before. Bit by bit, increase the amount you walk. Walking boosts blood flow and helps prevent pneumonia and constipation. Walking may also decrease your muscle soreness after surgery. ? No lifting anything that is more that 5 pounds. This may include heavy grocery bags and milk containers, a heavy briefcase or backpack, cat litter or dog food bags, a child, or a vacuum spool cleaner. ? Avoid strenuous activities, such as bicycle riding, jogging, weightlifting, or aerobic exercise, until your doctor says it is okay. ? Do not drive until your follow-up visit after your surgery, or until your doctor says it isokay. ? Avoid taking long car trips for 2 to 4 weeks after surgery. Your neck may become tired and painful from sitting too long in one position. ? You will probably need to take 4 to 6 weeks off from work. It depends on the type of work you do and how you feel. ? You may have sex as soon as you feel able, but avoid positions that put stress on your neck or cause pain. Diet ? You can eat your normal diet. If your stomach is upset, try bland, low-fat foods like plain rice, broiled chicken, toast, and yogurt ? Drink plenty of fluids. If you have kidney, heart, or liver disease and have to limit fluids, talk with your doctor before you increase the amount of fluids you drink. ? You may notice that your bowel movements are not regular right after your surgery. This is common. Try to avoid constipation and straining with bowel movements. You may want to take a fiber supplement every day. If you have not had a bowel movement after a couple of days, ask your doctor about taking a mild laxative. Medicines ? Take pain medicines exactly as directed. 1. If Dr. Moscoso gave you a prescription medicine for pain, take lt as prescribed. 2. Do not take two or more pain medicines at the same time unless the doctor told you to. Many pain medicines have acetaminophen, which is Tylenol. Too much acetaminophen {Tylenol) can be harmful. 3. If you think your pain pill is making you sick to your stomach: 4. Take your pills after meals (unless your doctor has told you not to). 5. Ask your Dr. for a different pain pill. Incisioncare ? Remove your dressing 48hours after your surgery. Ok to shower and get the incision wet. Do not overtly wash your incision. When done, pad dry, leave open to air thereafter. Avoid creams and ointments directly on your incision. ? Your sutures in the incision will dissolve and fall out on their own. ? Keep the area clean and dry. You may cover it with a gauze bandage if it weeps or rubs against clothing; if you choose to do this, change the dressing everyday. Other instructions ? Use a heating pad, hot water bottle, or gentle massage on your back to reduce stiffness. Avoid putting heat on your incision When should you call for help? ? Call 911 anytime you think you may need emergency care. For example, call if: ? You pass out (lose consciousness). ? You have sudden chest pain and shortness of breath, or you cough upblood. ? You cannot swallow. ? You have severe pain in your neck or back. ? Call your Dr. or seek immediate medical care if: ? You have pain that does not get better after you take pain pills. ? You have loose stitches, or your incision comes open. ? You have blood or fluid draining from the incision. ? You have signs of infection, such as: 1. Increased pain, swelling, warmth, or redness. 2. Red streaks leading from the site. 3. Pus draining from the site. 4. Swollen lymph nodes in your neck or armpits. 5. A fever. ? You have severe pain in your arms. ? You have new or increased weakness or numbness in your arms. ? Watch closely for any changes in your health, and be sure to contact your doctor if: ? You do not have a bowel movement after taking a laxative. Discharge Attestations Time Spent in Discharge Care*: less than 30 min Quality Metrics Clinical Quality Measures [ No reported AMI, CVA or VTE this stay] Coding Level of Care Code Acute Code for Chg Fwd
[2024-11-09] MEDS: cyclobenzaprine 10 mg Tablet PO ×2 (07:55→16:39)
[2024-11-09] MEDS: ondansetron 2 mg/ML SDV 2 mL 4 MG IVP (07:58)
[2024-11-09] MEDS: pantoprazole DR 40 mg Tablet PO ×2 (08:00→17:26)
[2024-11-09] MEDS: docusate sodium 100 mg Capsule PO ×2 (08:01→17:26)
[2024-11-09] MEDS: losartan 50 mg Tablet 25 MG PO (08:01)
[2024-11-09] MEDS: cetirizine 10 mg Tablet PO (08:01)
--- NOTE | 2024-11-09 10:17 | PC.CHAP ---
Pastoral Care Encounter/Spiritual Assessment Type of Contact [] Declined sales record clerk visit [] Patient/Family/Request visit [] Outpatient visit [] Follow-up visit [] Physician referral [] Code/Alert [] Routine visit [] Staff referral [] Actively dying [x] Patient sleeping [] Family support [] [] Out of room [] Palliative care [] [] Receiving care in room [] Pre-surgical visit [] Trauma [] Long length of stay [] ICU visit [] Other: Relational/Emotional Strength [] Patient feels connected with others/family/visitors/staff [] Distress [] Loneliness/isolation [] Abandonment Spirituality of Patient [] Person of Nancie [] Attends Mu-Ism of their Nancie [] Believes in Prayer [] Reads Bible or Amish materials [] There are Spiritual issues to be addressed Audio/Visual Operator Interventions [] Prayer [] Active listening [] Non-anxious presence [] Spiritual/emotional support [] Crisis/trauma care [] Spiritual counseling [] Bereavement support [] Provided bereavement packet [] Provided Bible/devotional materials [] Provided toy/stuffed animal, coloring book to patient or family member [] Provided Communion [] Anointing/[place] [] Salvation [] Completed spiritual assessment [] Other: Impact on Illness or Injury [] Angry [] Fearful [] Anxious [] Often cries [] Exhaustion [] Unable to work [] Unable to attend muslim [] Unable to walk/stand [] Unable to read [] Unable to drive [] Unable to eat/drink [] Unable to sleep [] Unable to be with family [] Patient intubated [] Other: Summary Time spent with patient
[2024-11-09] MEDS: ketorolac 30 mg/mL INJ IVP (11:05)
[2024-11-09] MEDS: acetaminophen 325 mg Tablet 650 MG PO (17:31)
--- NOTE | 2024-11-09 17:57 | PC.NURSE ---
Addendum entered by Elijah Grijalva RN 11/09/24 17:59: Drain site monitored since removal. Scant serous drainage noted. No swelling observed. patient does not report changes to swallowing. Original Note: late note: from 0800 until 1500 only 50mL of drainage was noted in the hemovac. Mostly sanguinous, but becoming increasingly serous throughout the shift. Decreased volume compared to previous shift. Hemovac removed and site covered with covaderm.
--- NOTE | 2024-11-09 18:05 | PC.NURSE ---
SHift SUmmary: Uneventful shift. up to a chair for a few hours today. Patient reports pain relief with ambulation and has needed less pain medicaiton as the day has gone by. Likely IVA curran per Dr woods
[2024-11-09] MEDS: morphine 4 mg/mL SDV 1 mL 2 MG IVP (23:38)
[2024-11-10] MEDS: ketorolac 30 mg/mL INJ IVP (01:47)
[2024-11-10] MEDS: HYDROcodone-acetaminophen 10-325 mg Tablet PO ×2 (03:06→08:26)
[2024-11-10 04:00] VITALS: BP 159/88; PULSE 63; RESP 18; TEMP 36.6; O2SAT 96
[2024-11-10 07:34] VITALS: BP 150/80; PULSE 74; RESP 15; TEMP 36.7; O2SAT 95
[2024-11-10] MEDS: cyclobenzaprine 10 mg Tablet PO (08:26)
[2024-11-10 08:27] VITALS: BP 150/80
[2024-11-10] MEDS: cetirizine 10 mg Tablet PO (08:27)
[2024-11-10] MEDS: losartan 50 mg Tablet 25 MG PO (08:27)
[2024-11-10] MEDS: pantoprazole DR 40 mg Tablet PO (08:28)
[2024-11-10] MEDS: docusate sodium 100 mg Capsule PO (08:28)
--- NOTE | 2024-11-10 10:30 | P.DS_ITS ---
Discharge Providers Date of Admission: 11/08/24 15:18 Date of Discharge: November 10, 2024 Attending Provider at Admission: Kevin Moscoso DO Attending Provider at Discharge: Kevin Moscoso DO Primary Care Provider: RAIMUNDO Baker Reason for Visit Reason for Visit: M48.X2 Physical Exam Narrative: Patient feels much better today will be discharged today. Urinary Catheter Management: Tyson: Cath Placed During This Visit: yes Urinary Catheter Date of Insertion: 11/08/24 Urinary Catheter Time of Insertion: 13:00 Discharge Data Studies Completed and Pending Completed Studies During Hospitalization Category Date Time Status XR cervical spine 3V* [id number] Routine Exams 11/08/24 15:13 Completed Radiology Impressions Cervical Spine X-Ray 11/08/24 15:13 Impression: Posterior cervical thoracic fusion. Vitals Last Vital Signs Temp 98.1 F 11/10/24 07:34 Pulse 74 11/10/24 07:34 Resp 15 11/10/24 07:34 BP 150/80 11/10/24 08:27 Pulse Ox 95 11/10/24 07:34 O2 Del Method Room Air 11/10/24 07:34 O2 Flow Rate 2 11/09/24 00:00 Discharge Plan Discharge Patient Disposition: Home Condition: Stable Prescriptions: New hydrocodone-acetaminophen 5-325 mg tablet 1 - 2 tab PO .Q4-6H Qty: 40 0RF Continued cetirizine [Zyrtec] 10 mg tablet 10 mg PO DAILY 90 Days Qty: 90 1RF losartan 25 mg tablet 25 mg PO DAILY 90 Days Qty: 90 1RF cyclobenzaprine 10 mg tablet 10 mg PO TID PRN (Reason: muscle spasm) Qty: 90 1RF jose (Zingiber officinalis) 500 mg capsule 500 mg PO DAILY omeprazole 40 mg capsule,delayed release(DR/EC) 40 mg PO BID hydrocortisone 2.5 % cream 1 applic topical QID PRN (Reason: skin irritation) Qty: 30 2RF hydrocodone-acetaminophen 5-325 mg tablet 1 tab PO Q6H MDD 4 PRN (Reason: pain) 14 Days Qty: 56 0RF ondansetron 4 mg tablet,disintegrating 4 mg PO BID PRN (Reason: Nausea And Vomiting) Qty: 30 0RF clobetasol 0.05 % cream 1 applic topical BID Rx Instructions: APPLY TWICE DAILY TO RASH. NOT FOR USE ON FACE, GROIN OR SKIN FOLDS. STOP APPLICATIONS WHEN CLEAR. epinephrine 0.3 mg/0.3 mL auto-injector See Rx Instructions .ROUTE .COMPLEX Rx Instructions: INJECT CONTENTS OF 1 PEN NEEDED FOR ALLERGIC REACTION DIRECTED. Discharge Orders: Discharge Order (Routine); Ordered 11/10/24 Ordered By: Kevin Moscoso Referrals: Kevin Moscoso, [Physician] - 11/16/24 8:00 am Victoria Wade FNP [Primary Care Provider] - (We have notified your physician's clinic of the need for a follow-up appointment to be scheduled. If you have not heard from them within the next 2 business days, please call them directly. ) Discharge Diet: Advance as tolerated Discharge Activity: Limit activity as instructed Patient Instructions: Hydrocodone/Acetaminophen (By mouth), Acute Wound Care (DC), Opioid Safety, Post Anesthesia Care Activity Restrictions/Additional Instructions: Thank you for choosing [facility] for your care! The following is a list of instructions, from your provider, to follow upon your discharge to ensure you have the optimal recovery from your recent injury or surgery. Anterior Cervical Discectomy and Fusion: What to Expect at Home Your Recovery Follow-up care is a ortega part of your treatment and safety. Be sure to make and go to all appointments, and call your doctor if you are having problems. If you do not already have a follow-up appointment made, call office in the next 1-3 days to make follow up appointment for 1 weeks at [phone]. It is also a good idea to know your test results and keep a list of the medicines you take. You can expect your neck to feel stiff or sore after surgery. This should improve in the weeks after surgery. But it may take 4 to 6 months for you to get better completely. You may have trouble sitting or standing in one position for very long and may need pain medicine in the weeks after your surgery. It may take 4 to 6 weeks to get back to your usual activities, but it may depend on what kind of surgery you had. Your throat will feel sore and it may be difficult to swallow for the first 3 days after your surgery. As long as you can get liquids down without difficulty, this should slowly improve, otherwise call our office or seek medical attention if it becomes increasingly difficult to get anything down including liquids. Avoid hot liquids for first 3-5 days. Soothing foods/liquids such as jello, pudding, and luke warm soups are recommended until swallowing improves. Staying elevated will also help, it's advised you keep propped up at while sleeping to help reduce the swelling. You may use an ice pack directly on your incision or around it on the front of your neck, using a cloth to protect your skin; and a heating pad to the back of your neck as needed. Do not use over the counter anti-inflammatory medications (Ibuprofen, Motrin, Aleve, Advil, etc) Taking these meds after having a fusion can delay fusion rates, we recommend you avoid them for the first 3 months after your surgery[address] Dr. Moscoso may advise you to work with a physical therapist to strengthen the muscles around your neck and back - this will be discussed at your follow - up appointments. The pain or numbness you were having in your arms before surgery should get better or go away completely. This care sheet gives you a general idea about how long it will take for you to recover. But each person recovers at a different pace. Follow the steps below to get better as quickly as possible. How can you care for yourself at home? Activity ? Rest when you feel tired. Getting enough sleep will help you recover. ? Try to walk each day. Start by walking a little more than you did the day before. Bit by bit, increase the amount you walk. Walking boosts blood flow and helps prevent pneumonia and constipation. Walking may also decrease your muscle soreness after surgery. ? No lifting anything that is more that 5 pounds. This may include heavy grocery bags and milk containers, a heavy briefcase or backpack, cat litter or dog food bags, a child, or a vacuum industrial cleaner. ? Avoid strenuous activities, such as bicycle riding, jogging, weightlifting, or aerobic exercise, until your doctor says it is okay. ? Do not drive until your follow-up visit after your surgery, or until your doctor says it isokay. ? Avoid taking long car trips for 2 to 4 weeks after surgery. Your neck may become tired and painful from sitting too long in one position. ? You will probably need to take 4 to 6 weeks off from work. It depends on the type of work you do and how you feel. ? You may have sex as soon as you feel able, but avoid positions that put stress on your neck or cause pain. Diet ? You can eat your normal diet. If your stomach is upset, try bland, low-fat foods like plain rice, broiled chicken, toast, and yogurt ? Drink plenty of fluids. If you have kidney, heart, or liver disease and have to limit fluids, talk with your doctor before you increase the amount of fluids you drink. ? You may notice that your bowel movements are not regular right after your surgery. This is common. Try to avoid constipation and straining with bowel movements. You may want to take a fiber supplement every day. If you have not had a bowel movement after a couple of days, ask your doctor about taking a mild laxative. Medicines ? Take pain medicines exactly as directed. 1. If Dr. Moscoso gave you a prescription medicine for pain, take lt as prescribed. 2. Do not take two or more pain medicines at the same time unless the doctor told you to. Many pain medicines have acetaminophen, which is Tylenol. Too much acetaminophen {Tylenol) can be harmful. 3. If you think your pain pill is making you sick to your stomach: 4. Take your pills after meals (unless your doctor has told you not to). 5. Ask your Dr. for a different pain pill. Incisioncare ? Remove your dressing 48hours after your surgery. Ok to shower and get the incision wet. Do not overtly wash your incision. When done, pad dry, leave open to air thereafter. Avoid creams and ointments directly on your incision. ? Your sutures in the incision will dissolve and fall out on their own. ? Keep the area clean and dry. You may cover it with a gauze bandage if it weeps or rubs against clothing; if you choose to do this, change the dressing everyday. Other instructions ? Use a heating pad, hot water bottle, or gentle massage on your back to reduce stiffness. Avoid putting heat on your incision When should you call for help? ? Call 911 anytime you think you may need emergency care. For example, call if: ? You pass out (lose consciousness). ? You have sudden chest pain and shortness of breath, or you cough upblood. ? You cannot swallow. ? You have severe pain in your neck or back. ? Call your Dr. or seek immediate medical care if: ? You have pain that does not get better after you take pain pills. ? You have loose stitches, or your incision comes open. ? You have blood or fluid draining from the incision. ? You have signs of infection, such as: 1. Increased pain, swelling, warmth, or redness. 2. Red streaks leading from the site. 3. Pus draining from the site. 4. Swollen lymph nodes in your neck or armpits. 5. A fever. ? You have severe pain in your arms. ? You have new or increased weakness or numbness in your arms. ? Watch closely for any changes in your health, and be sure to contact your doctor if: ? You do not have a bowel movement after taking a laxative. Discharge Attestations Time Spent in Discharge Care*: less than 30 min Quality Metrics Clinical Quality Measures [ No reported AMI, CVA or VTE this stay] Coding Level of Care Code Acute Code for Chg Fwd
[2024-11-10 11:05] VITALS: BP 156/79; PULSE 65; RESP 15; TEMP 37; O2SAT 96
[2024-11-10 12:26] VITALS: BP 156/79; PULSE 65; RESP 15; TEMP 37; O2SAT 96
--- NOTE | 2024-11-11 08:58 | PM.PN ---
Subjective Subjective: I seen the patient on 11/09/2024. He did not get up with physical therapy at. He was ready to go home however after he got up with physical therapy was in significant pain and we decided to keep him 1 more day he was discharged on 11/10/2024. Vitals/I&O/Wt Last Vital Signs Temp 98.6 F 11/10/24 12:26 Pulse 65 11/10/24 12:26 Resp 15 11/10/24 12:26 BP 156/79 11/10/24 12:26 Pulse Ox 96 11/10/24 12:26 O2 Del Method Room Air 11/10/24 11:05 O2 Flow Rate 2 11/09/24 00:00 Weight last 48 hrs Weight 180 lb 8 oz Physical Exam Urinary Catheter Management: Tyson: Cath Placed During This Visit: yes Urinary Catheter Date of Insertion: 11/08/24 Urinary Catheter Time of Insertion: 13:00 A&P PDMP PDMP Reviewed: Last Reviewed 11/09/24 08:22 EST by Kevin Moscoso DO Attestations Medical Necessity Statement*: Pain control Coding Level of Care Code Acute Code for Chg Fwd
== END 2024-11-10 11:55 | disposition home or self-care (01) | DRG 451 ==
LOC: MEDSURG 19:56
PROVIDERS: Admitting Provider Orthopaedic Surgery; PCP Nurse Practitioner Family; Visit Provider Orthopaedic Surgery
PROC: 0RGA071 Fusion of Thoracolumbar Vertebral Joint with Autologous Tissue Substitute, Posterior Approach, Posterior Column, Open Approach (ICD-10-PCS; CPT 22600; principal; 2024-11-08 13:00)
PROC: 0RGA071 Fusion of Thoracolumbar Vertebral Joint with Autologous Tissue Substitute, Posterior Approach, Posterior Column, Open Approach (ICD-10-PCS; CPT 63001; 2024-11-08 13:00)
DX: M48.02 Spinal stenosis, cervical region (principal); M50.01 Cervical disc disorder with myelopathy, high cervical region; J44.9 Chronic obstructive pulmonary disease, unspecified; G47.30 Sleep apnea, unspecified; I10 Essential (primary) hypertension; Z86.19 Personal history of other infectious and parasitic diseases
CPT/HCPCS: 51702; 72040; 76000; 97110; 97161; C1713; J0131; J0330; J0360; J0690; J1100; J1171; J1885; J2270; J2405; J2704; J3010; J3370; J3490; J7030; J7120

== ENCOUNTER → 2024-11-25 08:42 | Outpatient (BNVA) | payer MEDICAID, SELFPAY | PROVIDERS: PCP Nurse Practitioner Family; Visit Provider Orthopaedic Surgery | DX: Z98.1 Arthrodesis status (principal); M54.6 Pain in thoracic spine | CPT/HCPCS: 72072 ==

== ENCOUNTER → 2024-12-30 10:31 | Outpatient (BNVA) | payer MEDICAID, SELFPAY | PROVIDERS: PCP Nurse Practitioner Family; Visit Provider Orthopaedic Surgery | DX: Z98.1 Arthrodesis status (principal) | CPT/HCPCS: 72040 ==

== ENCOUNTER 2025-01-10 10:46 | Outpatient (CLI) | payer MEDICAID, SELFPAY ==
--- NOTE | 2025-01-10 10:55 | US_ITS ---
WS: [id number] Complete ABDOMINAL ULTRASOUND HISTORY: RUQ ABDOMINAL TENDERNESS COMPARISON: 10/14/2024 Liver: 18.2 cm in length. Top normal size with mild coarse echotexture. No mass. Portal Vein: Normal hepatopetal flow with monophasic waveform. Gallbladder: Normally distended gallbladder. Small amount of sludge but no wall thickening or stones. No hydrops. CBD: 0.2 cm Pancreas: Normal size and echogenicity. Right kidney: 9.5 cm x 5.6 x 5.8 cm. Cortex:1.0 cm. Normal size and echogenicity. No hydronephrosis or mass. Left kidney: 9.0 (cm) cm x 4.5 (cm) cm x 5.4 (cm) cm. Cortex: 1.1 cm. Normal size and echogenicity. No hydronephrosis or mass. Spleen: 10.7 cm. Normal size and echogenicity. Aorta and IVC: Unremarkable abdominal aorta and IVC. US/US abdomen complete* [id number] Impression: 1. Normally distended gallbladder with a small amount of sludge. No stones. 2. No common bile duct dilatation. 3. No hydronephrosis. 4. Mild hepatomegaly and hepatic steatosis.
== END 2025-01-10 10:47 | disposition home or self-care (01) ==
LOC: RAD 10:46
PROVIDERS: PCP Nurse Practitioner Family
DX: R10.811 Right upper quadrant abdominal tenderness (principal); R93.3 Abnormal findings on diagnostic imaging of other parts of digestive tract; R16.0 Hepatomegaly, not elsewhere classified; K76.0 Fatty (change of) liver, not elsewhere classified
CPT/HCPCS: 76700

== ENCOUNTER → 2025-01-11 12:51 | Outpatient (BNVA) | payer MEDICAID, SELFPAY | PROVIDERS: PCP Nurse Practitioner Family; Visit Provider Orthopaedic Surgery | DX: Z98.1 Arthrodesis status (principal) | CPT/HCPCS: 72040 ==

== ENCOUNTER → 2025-02-10 10:35 | Outpatient (BNVA) | payer MEDICAID, SELFPAY | PROVIDERS: PCP Nurse Practitioner Family; Visit Provider Orthopaedic Surgery | DX: Z98.1 Arthrodesis status (principal) | CPT/HCPCS: 72040 ==

== ENCOUNTER 2025-03-01 12:44 | Day surgery (SDC) | payer MEDICAID, SELFPAY ==
[2025-03-01 12:55] VITALS: BP 171/89; PULSE 54; RESP 18; TEMP 36.4; O2SAT 97; BMI 28.5
--- NOTE | 2025-03-01 13:02 | W.PM.OPSUD ---
Surgery/Procedure H&P Update DATE OF PROCEDURE: March 01, 2025 DATE H&P PERFORMED: 02/10/25 H&P UPDATE INFORMATION: I have reviewed H&P completed within last 30 days, I have examined patient prior to procedure and No changes to prior documentation PLANNED PROCEDURE: Operation Date: 03/01/25 14:00 Proposed Procedures p EGD 43568 K82.9(Not Applicable) - Lakhwinder Toscano MD
--- NOTE | 2025-03-01 13:06 | P.ANESASSM_ITS ---
Pre-Anesthetic Assessment Height/Weight: Height 1.7 m Weight 82.554 kg Temp Pulse Resp BP Pulse Ox O2 Del Method 97.6 F 54 L 18 171/89 97 Room Air 03/01/25 12:55 03/01/25 12:55 03/01/25 12:55 03/01/25 12:55 03/01/25 12:55 03/01/25 12:55 Preop Diagnosis: Gall Bladder Problem Operation Date: 03/01/25 14:00 Proposed Procedures p EGD 58918 K82.9(Not Applicable) - Lakhwinder Toscano MD Familial anesthetic complications: awareness under GA in 2000 femur pinning. Was Beta Romeo taken within 24 hours: N/A Was Clonidine taken within 24 hours: N/A Last intake: Intake Last Liquid Date 02/28/25 Last Liquid Time 22:30 Last Solid Date 02/27/25 Last Solid Time 22:30 Social No alcohol and No tobacco Cannabis last smoked 2 hours prior. Exam alert, No oriented x 3, No clear to auscultation bilaterally and No regular rate & rhythm Airway Submandibular: within normal limits Cervical ROM: within normal limits Mallampati: Class III Comments: Comments: no upper teeth poor dentition on remaining lower. Pulmonary None reported CV/HEM Hypertension None reported Hepatic Cirrhosis (enlarged and sluggish) previous treatment for Hep. C 2018 cleared per patient. GI abdominal pain and nausea reports improvement with medication. Metabolic None reported Musc/skel None reported Neuropsych None reported Anesthetic Plan ASA status: 3 Anesthesia: MAC Medications/Allergies Home Medications ?Medication ?Instructions ?Recorded ?Confirmed ?Last Taken ?Type clobetasol 0.05 % topical cream 1 applic topical BID 0 09/19/24 02/25/25 11/05/24 History epinephrine 0.3 mg/0.3 mL See Rx Instructions .Route . COMPLEX 09/19/24 02/25/25 Unknown History injection, auto-injector losartan 25 mg tablet 25 mg PO DAILY 90 days #90 t abs 10/04/24 02/25/25 02/28/25 Rx omeprazole 40 mg capsule,delayed 40 mg PO BID 10/19/24 02/25/25 02/28/25 History release hydrocortisone 2.5 % topical cream 1 applic topical QI D PRN skin 11/04/24 02/25/25 Unknown Rx irritation #30 grams cyclobenzaprine 10 mg tablet 10 mg PO TID PRN muscle s pasm #90 11/22/24 02/25/25 Unknown Rx tabs hydrocodone 5 mg-acetaminophen 325 1 - 2 tab PO .Q4-6H PRN pain 7 02/10/25 02/25/25 02/28/25 Rx mg tablet days #40 tabs sucralfate 100 mg/mL oral 10 ml PO BID 30 days #840 mL 02/10/25 02/25/25 02/28/25 Rx suspension cetirizine 10 mg tablet (Zyrtec) 10 mg PO DAILY PRN Al lergic 02/25/25 02/25/25 02/28/25 History Symptoms Allergies Allergy/AdvReac Type Severity Reaction Status Date / Time heparin Allergy Intermediate Unknown Verified 02/10/25 13:05 prednisone Allergy Intermediate hallucinati Verified 02/10/25 13:05 on alpha gal Allergy Intermediate ADR-Nausea Uncoded 02/10/25 13:05 [facility] Anesthesia Medical History Rectus diastasis Hx of hiatal hernia Surgical History History of esophagogastroduodenoscopy (EGD) showed hiatal hernia 4-5 yrs ago Social History Smoking and tobacco/nicotine status: former use of tobacco/nicotine Quit status (tobacco/nicotine): has quit using Year quit tobacco: 2008 Alcohol intake: former Substance/Drug Use: current
[2025-03-01] MEDS: sodium chloride 0.9% 1,000 ML 15 ML IV (13:08)
[2025-03-01 13:29] VITALS: BP 160/80; PULSE 60; RESP 16; TEMP 36.3; O2SAT 96
[2025-03-01 13:44] VITALS: BP 162/92; PULSE 63; RESP 16; O2SAT 97
--- NOTE | 2025-03-01 14:10 | ANE.PACU2 ---
Inpatient post-anesthesia follow up: Airway intact: Yes Vital signs: Temperature 97.4 F Pulse Rate 63 Respiratory Rate 16 Blood Pressure 162/92 Pulse Oximetry 97 Oxygen Delivery Me thod Room Air Oxygen Flow Rate 6 Fraction of Inspir ed Oxygen Hydration adequate: Yes Nausea and vomiting: No Pain level: 1 Mental status: Baseline
== END 2025-03-01 14:10 | disposition home or self-care (01) ==
PROVIDERS: PCP Nurse Practitioner Family; Visit Provider Student in an Organized Health Care Education/Training Program
PROC: 0DJ08ZZ Inspection of Upper Intestinal Tract, Via Natural or Artificial Opening Endoscopic (ICD-10-PCS; principal; 2025-03-01 14:00)
DX: K29.50 Unspecified chronic gastritis without bleeding (principal); K82.9 Disease of gallbladder, unspecified; R12 Heartburn; I10 Essential (primary) hypertension; K74.60 Unspecified cirrhosis of liver; Z79.899 Other long term (current) drug therapy; Z87.891 Personal history of nicotine dependence
CPT/HCPCS: 43239; 88305; 88342; J2250; J2704; J7030

== ENCOUNTER → 2025-03-15 14:46 | Outpatient (BNVA) | payer MEDICAID, SELFPAY | PROVIDERS: PCP Nurse Practitioner Family; Visit Provider Nurse Practitioner Family | DX: I10 Essential (primary) hypertension (principal) | CPT/HCPCS: 80053; 80061; 82306; 83036; 84443; 85025 ==

== ENCOUNTER → 2025-05-26 15:13 | Outpatient (BNVA) | payer MEDICAID, SELFPAY | PROVIDERS: PCP Nurse Practitioner Family; Visit Provider Orthopaedic Surgery | DX: M48.061 Spinal stenosis, lumbar region without neurogenic claudication (principal); M47.12 Other spondylosis with myelopathy, cervical region; G89.29 Other chronic pain; Z98.1 Arthrodesis status | CPT/HCPCS: 72040; 72100 ==